=== PATIENT | male | born 1975 | race Caucasian/White ===

== ENCOUNTER 2017-07-03 21:19 | Emergency (ER) | payer BC, OTHER ==
[2017-07-03] MEDS ORDERED: Sodium Chloride 0.9% 10 ML Syringe FLUSH PRN (21:44)
[2017-07-03] MEDS ORDERED: Sodium Chloride 0.9% 1,000 ML IV ONE (21:44)
--- NOTE | 2017-07-03 21:45 | EDM.PDOC ---
ED HPI GENERAL MEDICAL PROBLEM - General Chief Complaint: Flank Pain Stated Complaint: RIGHT SIDE FLANK PAIN Time Seen by Provider: 07/03/17 21:45 Source of Information: Reports: Patient History Limitations: Reports: No Limitations - History of Present Illness INITIAL COMMENTS - FREE TEXT/NARRATIVE: Patient is a 41-year-old male presents ED complaining of right-sided flank pain. States the pain is rated 8 out of 10 described as a dull achy sensation unable to get comfortable. It radiates into his right lower back consistent with previous previous passing a kidney stones. He's had 3 on the right that pass on their own accord. Last had a CT study of the abdomen and pelvis in 2016. Pain started approximately 2 weeks ago and has gradually progressed. It is quite severe today. Has been taking Tylenol and ibuprofen in alternating fashion for pain with minimal relief. He has been pushing the fluids. Denies any nausea/vomiting, fever/chills, dysuria, diarrhea, chest pain, shortness of breath, or any additional complaints. Right Flank Pain Score (Numeric/FACES): 9 - Related Data Allergies Allergy/AdvReac Type Severity Reaction Status Date / Time pineapple Allergy Vomiting Verified 07/03/17 21:32 tramadol Allergy Giddiness Verified 07/03/17 21:31 Past Medical History Genitourinary History: Reports: Renal Calculus - Infectious Disease History Infectious Disease History: Reports: Chicken Pox - Past Surgical History GI Surgical History: Reports: Hernia Repair/Other Other GI Surgeries/Procedures: umbilical hernia Social & Family History - Tobacco Use Smoking Status *Q: Current Every Day Smoker Years of Tobacco use: 20 Packs/Tins Daily: 1 - Caffeine Use Caffeine Use: Reports: None - Recreational Drug Use Recreational Drug Use: No ED ROS GENERAL - Review of Systems Review Of Systems: ROS reveals no pertinent complaints other than HPI. ED EXAM, RENAL/ - Physical Exam Exam: See Below Exam Limited By: No Limitations General Appearance: Alert, WD/WN, Mild Distress Ears: Hearing Grossly Normal Nose: Normal Inspection Throat/Mouth: Normal Inspection, Normal Oropharynx, Normal Voice, No Airway Compromise Neck: Normal Inspection, Supple Respiratory/Chest: No Respiratory Distress, Lungs Clear, Normal Breath Sounds, No Accessory Muscle Use Cardiovascular: Normal Peripheral Pulses, Regular Rate, Rhythm, No Murmur GI/Abdominal: Normal Bowel Sounds, Soft, Non-Tender, No Organomegaly, No Distention (Male) Exam: Deferred (No complaints) Back Exam: Normal Inspection, CVA Tenderness (R), Other (Right-sided flank tenderness). No: CVA Tenderness (L) Neurological: Alert, Oriented, CN II-XII Intact, Normal Cognition, No Motor/ Sensory Deficits Psychiatric: Normal Affect, Normal Mood Skin Exam: Warm, Dry, Intact, Normal Color, No Rash Course - Vital Signs Last Recorded V/S: Last Vital Signs Temp 97.9 F 07/03/17 21:26 Pulse 84 07/03/17 21:26 Resp 20 07/03/17 21:26 BP 148/94 H 07/03/17 21:26 Pulse Ox 99 07/03/17 21:26 - Orders/Labs/Meds Orders: Active Orders 24 hr Category Date Time Status Peripheral IV Care [RC] . DIRECTED Care 07/03/17 21:44 Active Abdomen Pelvis wo Cont [CT] Stat Exams 07/03/17 22:22 Taken DME for Discharge [COMM] Stat Oth 07/03/17 23:41 Ordered Peripheral IV Insertion Adult [OM.PC] Stat Oth 07/03/17 21:44 Ordered Labs: Laboratory Tests 07/03/17 07/03/17 07/03/17 Range/Units 22:00 22:00 22:15 WBC 6.80 (4.23-9.07) K/mm3 RBC 4.50 L (4.63-6.08) M/mm3 Hgb 14.9 (13.7-17.5) gm/L Hct 43.3 (40.1-51.0) % MCV 96.2 H (79.0-92.2) fl MCH 33.1 H (25.7-32.2) pg MCHC 34.4 (32.2-35.5) g/dl RDW Std Deviation 40.3 (35.1-43.9) fL Plt Count 178 (163-337) K/mm3 MPV 10.1 (9.4-12.3) fl Neut % (Auto) 42.7 (34.0-67.9) % Lymph % (Auto) 37.2 (21.8-53.1) % [place] % (Auto) 14.3 H (5.3-12.2) % Eos % (Auto) 4.7 (0.8-7.0) Baso % (Auto) 1.0 (0.1-1.2) % Neut # (Auto) 2.90 (1.78-5.38) K/mm3 Lymph # (Auto) 2.53 (1.32-3.57) K/mm3 [place] # (Auto) 0.97 H (0.30-0.82) K/mm3 Eos # (Auto) 0.32 (0.04-0.54) K/mm3 Baso # (Auto) 0.07 (0.01-0.08) K/mm3 Sodium 142 (136-145) mEq/L Potassium 4.0 (3.5-5.1) mEq/L Chloride 108 H (98-107) mEq/L Carbon Dioxide 24 (21-32) mEq/L Anion Gap 14.0 (5-15) BUN 13 (7-18) mg/dL Creatinine 1.1 (0.7-1.3) mg/dL Est Cr Clr Drug Dosing TNP Estimated GFR (MDRD) > 60 (>60) mL/min BUN/Creatinine Ratio 11.8 L (14-18) Glucose 111 H (74-106) mg/dL Calcium 8.3 L (8.5-10.1) mg/dL Total Bilirubin 0.4 (0.2-1.0) mg/dL AST 19 (15-37) U/L ALT 43 (16-63) U/L Alkaline Phosphatase 66 (46-116) U/L C-Reactive Protein < 0.2 (<1.0) mg/dL Total Protein 6.9 (6.4-8.2) g/dl Albumin 3.5 (3.4-5.0) g/dl Globulin 3.4 gm/dL Albumin/Globulin Ratio 1.0 (1-2) Urine Color (Yellow) Urine Appearance (Clear) Urine pH (5.0-8.0) Ur Specific [place] (1.005-1.030) Urine Protein (Negative) Urine Glucose (UA) (Negative) Urine Ketones (Negative) Urine Occult Blood (Negative) Urine Nitrite (Negative) Urine Bilirubin (Negative) Urine Urobilinogen (0.2-1.0) Ur Leukocyte Esterase (Negative) Urine RBC (0-5) /hpf Urine WBC (0-5) /hpf Ur Epithelial Cells (0-5) /hpf Urine Bacteria (FEW) /hpf Urine Mucus (FEW) /hpf Urine Opiates Screen Negative (NEGATIVE) Ur Buprenorphine Scrn Negative (NEGATIVE) Ur Oxycodone Screen Negative (NEGATIVE) Urine Methadone Screen Negative (NEGATIVE) Ur Propoxyphene Screen Negative (NEGATIVE) Ur Barbiturates Screen Negative (NEGATIVE) Ur Tricyclics Screen Negative (NEGATIVE) Ur Phencyclidine Scrn Negative (NEGATIVE) Ur Amphetamine Screen Negative (NEGATIVE) U Methamphetamines Scrn Negative (NEGATIVE) U Benzodiazepines Scrn Negative (NEGATIVE) U Cocaine Metab Screen Negative (NEGATIVE) U Marijuana (THC) Screen Presumptive positive H (NEGATIVE) 07/03/17 Range/Units 22:15 WBC (4.23-9.07) K/mm3 RBC (4.63-6.08) M/mm3 Hgb (13.7-17.5) gm/L Hct (40.1-51.0) % MCV (79.0-92.2) fl MCH (25.7-32.2) pg MCHC (32.2-35.5) g/dl RDW Std Deviation (35.1-43.9) fL Plt Count (163-337) K/mm3 MPV (9.4-12.3) fl Neut % (Auto) (34.0-67.9) % Lymph % (Auto) (21.8-53.1) % [place] % (Auto) (5.3-12.2) % Eos % (Auto) (0.8-7.0) Baso % (Auto) (0.1-1.2) % Neut # (Auto) (1.78-5.38) K/mm3 Lymph # (Auto) (1.32-3.57) K/mm3 [place] # (Auto) (0.30-0.82) K/mm3 Eos # (Auto) (0.04-0.54) K/mm3 Baso # (Auto) (0.01-0.08) K/mm3 Sodium (136-145) mEq/L Potassium (3.5-5.1) mEq/L Chloride (98-107) mEq/L Carbon Dioxide (21-32) mEq/L Anion Gap (5-15) BUN (7-18) mg/dL Creatinine (0.7-1.3) mg/dL Est Cr Clr Drug Dosing Estimated GFR (MDRD) (>60) mL/min BUN/Creatinine Ratio (14-18) Glucose (74-106) mg/dL Calcium (8.5-10.1) mg/dL Total Bilirubin (0.2-1.0) mg/dL AST (15-37) U/L ALT (16-63) U/L Alkaline Phosphatase (46-116) U/L C-Reactive Protein (<1.0) mg/dL Total Protein (6.4-8.2) g/dl Albumin (3.4-5.0) g/dl Globulin gm/dL Albumin/Globulin Ratio (1-2) Urine Color Yellow (Yellow) Urine Appearance Clear (Clear) Urine pH 6.5 (5.0-8.0) Ur Specific [place] 1.020 (1.005-1.030) Urine Protein Negative (Negative) Urine Glucose (UA) Negative (Negative) Urine Ketones Negative (Negative) Urine Occult Blood Negative (Negative) Urine Nitrite Negative (Negative) Urine Bilirubin Negative (Negative) Urine Urobilinogen 1.0 (0.2-1.0) Ur Leukocyte Esterase Negative (Negative) Urine RBC Not seen (0-5) /hpf Urine WBC 0-5 (0-5) /hpf Ur Epithelial Cells Not seen (0-5) /hpf Urine Bacteria Not seen (FEW) /hpf Urine Mucus Few (FEW) /hpf Urine Opiates Screen (NEGATIVE) Ur Buprenorphine Scrn (NEGATIVE) Ur Oxycodone Screen (NEGATIVE) Urine Methadone Screen (NEGATIVE) Ur Propoxyphene Screen (NEGATIVE) Ur Barbiturates Screen (NEGATIVE) Ur Tricyclics Screen (NEGATIVE) Ur Phencyclidine Scrn (NEGATIVE) Ur Amphetamine Screen (NEGATIVE) U Methamphetamines Scrn (NEGATIVE) U Benzodiazepines Scrn (NEGATIVE) U Cocaine Metab Screen (NEGATIVE) U Marijuana (THC) Screen (NEGATIVE) Meds: Medications Discontinued Medications Generic Name Dose Route Start Last Admin Trade Name Freq PRN Reason Stop Dose Admin Hydromorphone HCl 0.5 mg 07/03/17 22:22 07/03/17 22:32 Dilaudid IVPUSH 07/03/17 22:23 0.5 mg ONETIME ONE Administration Sodium Chloride 1,000 mls @ 999 mls/hr 07/03/17 21:44 07/03/17 22:14 Normal Saline IV 07/03/17 22:44 999 mls/hr ONETIME ONE Administration Ketorolac Tromethamine 30 mg 07/03/17 22:22 07/03/17 22:33 Toradol IVPUSH 07/03/17 22:23 30 mg ONETIME ONE Administration Sodium Chloride 10 ml 07/03/17 21:44 07/03/17 22:15 Saline Flush FLUSH 10 ml ASDIRECTED PRN Administration Keep Vein Open Tamsulosin HCl 0.4 mg 07/03/17 23:40 07/04/17 00:03 Flomax PO 07/03/17 23:41 0.4 mg ONETIME ONE Administration - Re-Assessments/Exams Free Text/Narrative Re-Assessment/Exam: Labs reviewed: CBC 6.80, hemoglobin 14.9, platelet count 178, condition panel essentially normal, CRP less than 0.2. UA completely normal. Urine drug tox positive for marijuana. Small kidney stone within the right distal ureter with minimal hydronephrosis present. Few kidney stones within the right kidney. Reassessment, shared results of labs and CT study with patient. Pain is controlled. Ordered flomax 0.4mg PO. We will discharge patient home with instructions as documented. Departure - Departure Time of Disposition: 23:50 Disposition: Home, Self-Care 01 Condition: Good Clinical Impression: Kidney stone on right side - Discharge Information Instructions: Kidney Stones, [id number], Pain Medicine Instructions, Easy-to- Read Referrals: PCP,None [Primary Care Provider] - Forms: ED Department Discharge, ED Return to Work/School Form Additional Instructions: As discussed you have a small kidney stone within the right ureter that should pass on its own accord over the next few hours. Treatment at this point will be Tylenol and ibuprofen in alternating fashion for pain. Flomax 1 tab every day for the next 7 days. Push the fluids. Strain all urine voids. For severe pain take [place] one tab every 6 hours as needed. Do not take [place] and Tylenol together. Follow-up with urologist if stone does not pass within the next week or 2 for reevaluation. No driving while taking the [place]. No driving this evening since receiving a sedative medication while in the ED. Return to the ED if you develop any new or worsening symptoms. - My Orders Last 24 Hours: My Active Orders 07/03/17 21:44 Peripheral IV Care [RC] . DIRECTED Peripheral IV Insertion Adult [OM.PC] Stat 07/03/17 22:22 Abdomen Pelvis wo Cont [CT] Stat 07/03/17 23:41 DME for Discharge [COMM] Stat - Assessment/Plan Last 24 Hours: My Active Orders 07/03/17 21:44 Peripheral IV Care [RC] . DIRECTED Peripheral IV Insertion Adult [OM.PC] Stat 07/03/17 22:22 Abdomen Pelvis wo Cont [CT] Stat 07/03/17 23:41 DME for Discharge [COMM] Stat
[2017-07-03] MEDS ORDERED: Ketorolac 30 MG/ML SDV IVPUSH ONE (22:22)
[2017-07-03] MEDS ORDERED: HYDROmorphone 0.5 MG/0.5 ML Syringe IVPUSH ONE (22:22)
[2017-07-03] MEDS ORDERED: Tamsulosin 0.4 MG Cap.ER PO ONE (23:40)
--- NOTE | 2017-07-04 10:54 | CT ---
CT abdomen and pelvis Technique: Multiple axial sections were obtained from above the dome of the diaphragm inferiorly through the pubic symphysis. Intravenous and oral contrast not utilized. Comparison: Previous noncontrast CT exam of 01/11/09. Findings: Visualized lung bases are clear. Diffuse fatty infiltration is seen within the liver. Spleen appears within normal limits. Adrenal glands show no nodule. Pancreas appears within normal limits. Minimal increased density within the gallbladder suspicious for small gallstones. Nonobstructing calculi are seen within the right kidney. Left kidney shows no abnormal calcifications. Ureters show no dilatation. No abnormal calcifications are seen along the course of the ureters. Aorta shows no aneurysmal dilatation. No retroperitoneal adenopathy or mesenteric abnormalities are seen. Appendix is seen which is normal. No pelvic mass or adenopathy is seen. Small fat containing left inguinal hernia is noted. No free fluid or inflammatory change is seen. Bone window settings were reviewed which appear within normal limits for the patient's age. Impression: 1. Diffuse fatty infiltration within the liver which is a stable finding from prior CT exam. 2. Possible small gallstones within the gallbladder. 3. Nonobstructing calculi within the right kidney. No ureteral dilatation or ureteral stone is seen. 4. Other incidental findings. Diagnostic code #3 I agree with preliminary report issued by [facility] ([facility] report finalized on 07/04/17, 12:02 AM Central Time)
== END 2017-07-04 00:22 | disposition home or self-care (01) ==
LOC: JD.ED 21:19
DX: N13.2 Hydronephrosis with renal and ureteral calculous obstruction (principal); F17.210 Nicotine dependence, cigarettes, uncomplicated; Z88.5 Allergy status to narcotic agent; Z91.018 Allergy to other foods
CPT/HCPCS: 36415; 74176; 80053; 80306; 81001; 85025; 86140; 96361; 96374; 96375; 99284; A9270; J1170; J1885; J7040; J7050

== ENCOUNTER 2017-07-24 21:30 | Emergency (ER) | payer SELFPAY ==
--- NOTE | 2017-07-24 23:00 | EDM.PDOC ---
ED HPI GENERAL MEDICAL PROBLEM - General Chief Complaint: Flank Pain Stated Complaint: RIGHT FLANK PAIN Time Seen by Provider: 07/24/17 22:05 Source of Information: Reports: Patient, Old Records History Limitations: Reports: No Limitations - History of Present Illness INITIAL COMMENTS - FREE TEXT/NARRATIVE: The patient states that he developed a stabbing pain just superior to his right buttock yesterday, 07/23/2017. The pain comes and goes, typically lasting about 1 minute, recurring about every 10-15 minutes. He feels better if he is sitting upright or walking around, worse if he is supine, and he has also noticed that he has increasing frequency of pain if he is supine. The patient reports that he had some burning urination with his last urination. No recent fever, nausea, vomiting, constipation, or diarrhea. The patient states that he has had similar symptoms 5 or 6 times in the past, and diagnosed with kidney stones. He has never followed up with a Urologist. Review of our medical records indicates that the patient was seen in this ED on 07/03/2017 with a similar complaint of right flank pain. Workup at that time included a CBC, CMP, CRP, urinalysis, urine drug screen, and a CT scan of the abdomen and pelvis without contrast. His workup was unremarkable. He did not have an elevated WBC count, and his urinalysis was negative for both occult blood and RBCs. His urine drug screen was positive for marijuana (that the patient acknowledges). The preliminary CT scan was read by [facility], who reported no hydronephrosis, but multiple bilateral small nonobstructive calcifications of the renal sinuses. There was no bladder calculus, and [facility]'s impression was that the source of the patient's pain was not elucidated. Subsequent formal read of the CT scan by Dr. Mishra concluded the same. For reasons unclear, however, the provider documented "Small kidney stone within the right distal ureter with minimal hydronephrosis present. Few kidney stones within the right kidney." The discharge instructions indicated "As discussed in you have a small kidney stone within the right ureter that you should pass on its own accord over the next few hours." The patient was discharged home with prescriptions for [place] and Flomax. Left Flank Pain Score (Numeric/FACES): 8 - Related Data Allergies Allergy/AdvReac Type Severity Reaction Status Date / Time pineapple Allergy Vomiting Verified 07/03/17 21:32 tramadol Allergy Giddiness Verified 07/03/17 21:31 Home Meds: Home Meds Orphenadrine [Norflex] 1 tab PO Q12H PRN #20 tab.er 07/24/17 [Rx] Past Medical History Genitourinary History: Reports: Renal Calculus Endocrine/Metabolic History: Reports: Obesity/BMI 30+ - Infectious Disease History Infectious Disease History: Reports: Chicken Pox - Past Surgical History GI Surgical History: Reports: Hernia, Abdominal (umbilical) Social & Family History - Tobacco Use Smoking Status *Q: Current Every Day Smoker Years of Tobacco use: 25 Packs/Tins Daily: 1 Packs/Tins Daily Comment: Down from 2 ppd - Caffeine Use Caffeine Use: Reports: Soda - Alcohol Use Alcohol Use History: Yes Alcohol Use Frequency: Rarely - Recreational Drug Use Recreational Drug Use: Yes Drug Use in Last 12 Months: Yes Recreational Drug Type: Reports: Marijuana/Hashish (occasionally) - Living Situation & Occupation Living situation: Reports: Single, with Family (with common-law , 2 kids) Occupation: Employed ([employer]) ED ROS GENERAL - Review of Systems Review Of Systems: ROS reveals no pertinent complaints other than HPI. ED EXAM, GI/ABD - Physical Exam Exam: See Below Exam Limited By: No Limitations General Appearance: Alert, WD/WN, No Apparent Distress Eyes: Bilateral: Normal Appearance, EOMI Ears: Normal External Exam, Hearing Grossly Normal Nose: Normal Inspection, No Blood Throat/Mouth: Normal Inspection, Normal Lips, Normal Voice, No Airway Compromise Head: Atraumatic, Normocephalic Neck: Normal Inspection, Full Range of Motion Respiratory/Chest: No Respiratory Distress, Lungs Clear, Normal Breath Sounds, No Accessory Muscle Use Cardiovascular: Normal Peripheral Pulses, Regular Rate, Rhythm, No Gallop, No JVD, No Murmur, No Rub GI/Abdominal Exam: Normal Bowel Sounds, Soft, Non-Tender, No Organomegaly, No Distention, No Abnormal Bruit, No Mass, Other (Obese) (Male) Exam: Deferred Rectal (Males) Exam: Deferred Back Exam: Normal Inspection, Full Range of Motion. No: CVA Tenderness (L), CVA Tenderness (R), Muscle Spasm, Paraspinal Tenderness Extremities: Normal Inspection, Normal Range of Motion, No Pedal Edema, Normal Capillary Refill Neurological: Alert, Oriented, Normal Cognition, No Motor/Sensory Deficits Psychiatric: Normal Affect Skin Exam: Warm, Dry, Intact, Normal Color, No Rash Course - Vital Signs Last Recorded V/S: Last Vital Signs Temp 36.5 C 07/24/17 21:35 Pulse 84 07/24/17 21:35 Resp 18 07/24/17 21:35 BP 151/85 H 07/24/17 21:35 Pulse Ox 97 07/24/17 21:35 - Orders/Labs/Meds Orders: Active Orders 24 hr Category Date Time Status Orphenadrine [Norflex] Med 07/24/17 23:42 Stat 100 mg PO ONETIME STA Labs: Laboratory Tests 07/24/17 Range/Units 22:28 Urine Color Yellow (Yellow) Urine Appearance Clear (Clear) Urine pH 6.5 (5.0-8.0) Ur Specific [place] > or = 1.030 (1.005-1.030) Urine Protein Negative (Negative) Urine Glucose (UA) Negative (Negative) Urine Ketones Negative (Negative) Urine Occult Blood Trace-lysed H (Negative) Urine Nitrite Negative (Negative) Urine Bilirubin Negative (Negative) Urine Urobilinogen 0.2 (0.2-1.0) Ur Leukocyte Esterase Negative (Negative) Urine RBC 0-5 (0-5) /hpf Urine WBC 0-5 (0-5) /hpf Ur Epithelial Cells Not seen (0-5) /hpf Urine Bacteria Not seen (FEW) /hpf Urine Mucus Moderate H (FEW) /hpf - Re-Assessments/Exams Free Text/Narrative Re-Assessment/Exam: 07/24/17 23:42 Urinalysis results discussed with the patient. His urinalysis finds trace occult blood, but 0-5 RBCs. This is not consistent with a ureterolith, and I recommended that we not proceed with a CT scan, as I believe this would be unnecessary radiation with an extremely low likelihood of finding a stone. Because the patient's CT scan from 07/03/2017 was otherwise negative, I suspect that the patient's pain musculoskeletal in etiology. I'm therefore recommending that we treat him with Norflex, and if his pain does not improve over the next few days, that he then follow-up with Dr. Zafar for further evaluation. The patient is agreeable. Departure - Departure Time of Disposition: 23:42 Disposition: Home, Self-Care 01 Condition: Good Clinical Impression: Muscle spasm of back - Discharge Information Referrals: PCP,None [Primary Care Provider] - Alyssa Zafar [Physician] - Forms: ED Department Discharge Additional Instructions: You were seen in the emergency room for intermittent lower right flank pain. Workup in the ER included a urinalysis, which returned as normal. There was no blood in your urine. While it is theoretically possible to have a stone in your ureter with no blood in your urine, it is extremely uncommon. Additionally, while you had been told on 07/03/2017 that you had a stone in your ureter, in fact, no stone was found there. You had no blood in your urine on 07/03/2017, either. Based on your history and physical examination, your pain is MOST LIKELY due to a muscle spasm. You have been started on the muscle relaxant Norflex. A prescription for this has been sent to the [facility], [address] [place] [address]. Take one tablet of Norflex every 12 hours, as prescribed. Take [id number] ibuprofen, 2-3 tablets (400-600 mg) every 8 hours, with food, as needed for discomfort. If you continue to have lower right flank pain over the weekend, please follow- up with Dr. Zafar in the clinic early this coming week. If any other problems, please do not hesitate to return to the ER. - My Orders Last 24 Hours: My Active Orders 07/24/17 23:42 Orphenadrine [Norflex] 100 mg PO ONETIME STA - Assessment/Plan Last 24 Hours: My Active Orders 07/24/17 23:42 Orphenadrine [Norflex] 100 mg PO ONETIME STA
[2017-07-24] MEDS ORDERED: Orphenadrine 100 MG Tab.ER PO STA (23:42)
== END 2017-07-24 23:55 | disposition home or self-care (01) ==
LOC: JD.ED 21:30
DX: M62.830 Muscle spasm of back (principal); E66.9 Obesity, unspecified; F17.210 Nicotine dependence, cigarettes, uncomplicated; Z88.6 Allergy status to analgesic agent; Z91.018 Allergy to other foods
CPT/HCPCS: 81001; 99284; A9270; 99283

== ENCOUNTER 2017-09-20 10:10 | Emergency (ER) | payer SELFPAY ==
[2017-09-20] MEDS ORDERED: Ondansetron 4 MG/2 ML SDV IVPUSH ONE (10:54)
[2017-09-20] MEDS ORDERED: Sodium Chloride 0.9% 1,000 ML IV STA (10:54)
[2017-09-20] MEDS ORDERED: Sodium Chloride 0.9% 10 ML Syringe FLUSH PRN ×2 (10:54→11:24)
[2017-09-20] MEDS ORDERED: fentaNYL 100 MCG/2 ML SDV IVPUSH ONE ×2 (10:57→14:15)
--- NOTE | 2017-09-20 11:23 | EDM.PDOC ---
ED HPI GENERAL MEDICAL PROBLEM - General Chief Complaint: Abdominal Pain Stated Complaint: RT SIDE PAIN Time Seen by Provider: 09/20/17 10:49 Source of Information: Reports: Patient History Limitations: Reports: No Limitations - History of Present Illness INITIAL COMMENTS - FREE TEXT/NARRATIVE: The patient presents with RLQ abdominal pain. This started this morning at 7: 30am. He has no nausea or vomiting. He has no dysuria, hematuria or diarrhea. He does have a history of kidney stones but says this feels different. He still has his gallbladder and his appendix. He has no fever, chills, cough, congestion, chest pain or shortness of breath. Onset: Sudden Duration: Hour(s): (7:30am) Location: Reports: Abdomen Quality: Reports: Sharp Severity: Severe Improves with: Reports: None Worsens with: Reports: None Associated Symptoms: Denies: Chest Pain, Fever/Chills, Headaches, Nausea/ Vomiting, Shortness of Breath Right Abdomen Pain Score (Numeric/FACES): 9 - Related Data Allergies Allergy/AdvReac Type Severity Reaction Status Date / Time pineapple Allergy Vomiting Verified 07/25/17 00:22 tramadol Allergy Giddiness Verified 07/25/17 00:22 Home Meds: Home Meds Hydrocodone/Acetaminophen [Hydrocodon-Acetaminophen 5-325] 1 - 2 each PO Q6HR PRN #20 tablet 09/20/17 [Rx] Tamsulosin HCl [Flomax] 0.4 mg PO DAILY #7 cap.er.24h 09/20/17 [Rx] Past Medical History Genitourinary History: Reports: Renal Calculus Endocrine/Metabolic History: Reports: Obesity/BMI 30+ - Infectious Disease History Infectious Disease History: Reports: Chicken Pox - Past Surgical History GI Surgical History: Reports: Hernia, Abdominal Social & Family History - Family History Family Medical History: Noncontributory - Tobacco Use Smoking Status *Q: Current Every Day Smoker Years of Tobacco use: 20 Packs/Tins Daily: 1 Used Tobacco, but Quit: No Second Hand Smoke Exposure: No - Caffeine Use Caffeine Use: Reports: Tea - Recreational Drug Use Recreational Drug Use: Yes Drug Use in Last 12 Months: Yes Recreational Drug Type: Reports: Marijuana/Hashish - Living Situation & Occupation Living situation: Reports: Single, with Family (with common-law , 2 kids) Occupation: Employed ([employer]) ED ROS GENERAL - Review of Systems Review Of Systems: See Below Constitutional: Reports: No Symptoms HEENT: Reports: No Symptoms Respiratory: Reports: No Symptoms Cardiovascular: Reports: No Symptoms Endocrine: Reports: No Symptoms GI/Abdominal: Reports: Abdominal Pain. Denies: Diarrhea, Nausea, Vomiting : Reports: No Symptoms Musculoskeletal: Reports: No Symptoms Skin: Reports: No Symptoms ED EXAM, GI/ABD - Physical Exam Exam: See Below Exam Limited By: No Limitations General Appearance: Alert, No Apparent Distress Ears: Normal External Exam Nose: Normal Inspection Head: Atraumatic, Normocephalic Neck: Normal Inspection Respiratory/Chest: No Respiratory Distress, Lungs Clear, Normal Breath Sounds Cardiovascular: Regular Rate, Rhythm, No Edema, No Murmur GI/Abdominal Exam: Soft, No Organomegaly, No Mass, Tender (Mild to moderate) Back Exam: Normal Inspection Course - Vital Signs Last Recorded V/S: Last Vital Signs Temp 97.9 F 09/20/17 10:15 Pulse 83 09/20/17 10:15 Resp 18 09/20/17 10:15 BP 168/100 H 09/20/17 10:15 Pulse Ox 98 09/20/17 10:15 - Orders/Labs/Meds Orders: Active Orders 24 hr Category Date Time Status Peripheral IV Care [RC] . DIRECTED Care 09/20/17 10:54 Active Sodium Chloride 0.9% [Saline Flush] Med 09/20/17 10:54 Active 10 ml FLUSH ASDIRECTED PRN Sodium Chloride 0.9% [Saline Flush] Med 09/20/17 11:24 Active 10 ml FLUSH ONETIME PRN fentaNYL [Sublimaze] Med 09/20/17 14:15 Once 100 mcg IVPUSH ONETIME ONE ED Antiemetic Medication Reflex [OM.PC] Stat Oth 09/20/17 10:54 Ordered Peripheral IV Insertion Adult [OM.PC] Stat Oth 09/20/17 10:54 Ordered Medication Orders Sodium Chloride (Saline Flush) 10 ml FLUSH ASDIRECTED PRN PRN Reason: Keep Vein Open Last Admin: 09/20/17 11:07 Dose: 10 ml Sodium Chloride (Saline Flush) 10 ml FLUSH ONETIME PRN PRN Reason: IV FLUSH Last Admin: 09/20/17 12:42 Dose: 10 ml Labs: Laboratory Tests 09/20/17 09/20/17 09/20/17 Range/Units 10:20 10:20 11:23 WBC 6.28 (4.23-9.07) K/mm3 RBC 4.85 (4.63-6.08) M/mm3 Hgb 16.3 (13.7-17.5) gm/L Hct 46.3 (40.1-51.0) % MCV 95.5 H (79.0-92.2) fl MCH 33.6 H (25.7-32.2) pg MCHC 35.2 (32.2-35.5) g/dl RDW Std Deviation 41.0 (35.1-43.9) fL Plt Count 207 (163-337) K/mm3 MPV 10.6 (9.4-12.3) fl Neut % (Auto) 58.0 (34.0-67.9) % Lymph % (Auto) 26.6 (21.8-53.1) % [place]by % (Auto) 11.5 (5.3-12.2) % Eos % (Auto) 2.5 (0.8-7.0) Baso % (Auto) 1.1 (0.1-1.2) % Neut # (Auto) 3.64 (1.78-5.38) K/mm3 Lymph # (Auto) 1.67 (1.32-3.57) K/mm3 [place] # (Auto) 0.72 (0.30-0.82) K/mm3 Eos # (Auto) 0.16 (0.04-0.54) K/mm3 Baso # (Auto) 0.07 (0.01-0.08) K/mm3 Sodium 139 (136-145) mEq/L Potassium 3.9 (3.5-5.1) mEq/L Chloride 103 (98-107) mEq/L Carbon Dioxide 24 (21-32) mEq/L Anion Gap 15.9 H (5-15) BUN 15 (7-18) mg/dL Creatinine 1.0 (0.7-1.3) mg/dL Est Cr Clr Drug Dosing 106.70 mL/min Estimated GFR (MDRD) > 60 (>60) mL/min BUN/Creatinine Ratio 15.0 (14-18) Glucose 118 H (74-106) mg/dL Calcium 9.1 (8.5-10.1) mg/dL Total Bilirubin 0.8 (0.2-1.0) mg/dL AST 34 (15-37) U/L ALT 62 (16-63) U/L Alkaline Phosphatase 73 (46-116) U/L Total Protein 7.8 (6.4-8.2) g/dl Albumin 4.4 (3.4-5.0) g/dl Globulin 3.4 gm/dL Albumin/Globulin Ratio 1.3 (1-2) Lipase 220 (73-393) U/L Urine Color Yellow (Yellow) Urine Appearance Clear (Clear) Urine pH 6.5 (5.0-8.0) Ur Specific [place] 1.015 (1.005-1.030) Urine Protein Negative (Negative) Urine Glucose (UA) Negative (Negative) Urine Ketones Negative (Negative) Urine Occult Blood 2+ H (Negative) Urine Nitrite Negative (Negative) Urine Bilirubin Negative (Negative) Urine Urobilinogen 0.2 (0.2-1.0) Ur Leukocyte Esterase Negative (Negative) Urine RBC 5-10 H (0-5) /hpf Urine WBC 0-5 (0-5) /hpf Ur Epithelial Cells Not seen (0-5) /hpf Urine Bacteria Not seen (FEW) /hpf Urine Mucus Few (FEW) /hpf Meds: Medications Generic Name Dose Route Start Last Admin Trade Name Maribel PRN Reason Stop Dose Admin Sodium Chloride 10 ml 09/20/17 10:54 09/20/17 11:07 Saline Flush FLUSH 10 ml ASDIRECTED PRN Administration Keep Vein Open Sodium Chloride 10 ml 09/20/17 11:24 09/20/17 12:42 Saline Flush FLUSH 10 ml ONETIME PRN Administration IV FLUSH Discontinued Medications Generic Name Dose Route Start Last Admin Trade Name Fredeep PRN Reason Stop Dose Admin Diatrizoate Meglum/Diatrizoate Sod 90 ml 09/20/17 11:24 09/20/17 12:41 Gastrografin 37% PO 09/20/17 11:25 90 ml ONETIME ONE Administration Fentanyl 100 mcg 09/20/17 10:57 09/20/17 11:06 Sublimaze IVPUSH 09/20/17 10:58 100 mcg ONETIME ONE Administration Hydromorphone HCl 0.5 mg 09/20/17 12:15 09/20/17 12:28 Dilaudid IVPUSH 09/20/17 12:16 0.5 mg ONETIME ONE Administration Sodium Chloride 1,000 mls @ 1,000 mls/hr 09/20/17 10:54 09/20/17 11:04 Normal Saline IV 09/20/17 11:53 1,000 mls/hr .BOLUS STA Administration Iopamidol 125 ml 09/20/17 11:24 09/20/17 12:42 Isovue-300 (61%) IVPUSH 09/20/17 11:25 125 ml ONETIME ONE Administration Ondansetron HCl 4 mg 09/20/17 10:54 09/20/17 11:04 Zofran IVPUSH 09/20/17 10:55 4 mg ONETIME ONE Administration - Re-Assessments/Exams Free Text/Narrative Re-Assessment/Exam: 09/20/17 13:13 I ordered an IV NS 1L bolus, zofran 4mg IV, fentanyl 100mcg, labs, UA and a CT of his abdomen and pelvis. 09/20/17 14:15 His CBC and CMP look good. His UA shows blood in his urine. His CT does show a stone in the right ureter at the UVJ. I will give him some more fentanyl and discharge him home on some hydrocodone and flomax. Departure - Departure Time of Disposition: 14:20 Disposition: Home, Self-Care 01 Condition: Good Clinical Impression: Kidney stone on right side - Discharge Information Prescriptions: Hydrocodone/Acetaminophen [Hydrocodon-Acetaminophen 5-325] 1 - 2 each PO Q6HR PRN #20 tablet PRN Reason: Pain Tamsulosin HCl [Flomax] 0.4 mg PO DAILY #7 cap.er.24h Referrals: PCP,None [Primary Care Provider] - Casimiro Evans MD [Physician] - 1 Week Forms: ED Department Discharge Additional Instructions: Take an antiinflammatory such as motrin or aleve. You may also take the hydrocodone for pain. Drink plenty of fluids. Take flomax daily until you pass the stone. Follow up with Dr Evans. Please return if you are worse. - My Orders Last 24 Hours: My Active Orders 09/20/17 10:54 Peripheral IV Care [RC] . DIRECTED Sodium Chloride 0.9% [Saline Flush] 10 ml FLUSH ASDIRECTED PRN ED Antiemetic Medication Reflex [OM.PC] Stat Peripheral IV Insertion Adult [OM.PC] Stat 09/20/17 11:24 Sodium Chloride 0.9% [Saline Flush] 10 ml FLUSH ONETIME PRN 09/20/17 14:15 fentaNYL [Sublimaze] 100 mcg IVPUSH ONETIME ONE - Assessment/Plan Last 24 Hours: My Active Orders 09/20/17 10:54 Peripheral IV Care [RC] . DIRECTED Sodium Chloride 0.9% [Saline Flush] 10 ml FLUSH ASDIRECTED PRN ED Antiemetic Medication Reflex [OM.PC] Stat Peripheral IV Insertion Adult [OM.PC] Stat 09/20/17 11:24 Sodium Chloride 0.9% [Saline Flush] 10 ml FLUSH ONETIME PRN 09/20/17 14:15 fentaNYL [Sublimaze] 100 mcg IVPUSH ONETIME ONE
[2017-09-20] MEDS ORDERED: Diatrizoate Meglumine/Diatrizoate Sodium 37% 120 ML Bottle PO ONE (11:24)
[2017-09-20] MEDS ORDERED: Iopamidol 612 MG/ML 150 ML Bottle IVPUSH ONE (11:24)
[2017-09-20] MEDS ORDERED: HYDROmorphone 0.5 MG/0.5 ML SYRINGE IVPUSH ONE (12:15)
--- NOTE | 2017-09-20 13:27 | CT ---
Addendum: Additional delayed images through the pelvis were obtained. Contrast is noted the distal right ureter. Small calcification is seen in the area of the distal right ureter which is felt to be within the distal right ureter at the UVJ and slightly displaced medially due to mild edema within the distal right ureteral wall. Findings are felt compatible with a partially obstructing distal right ureteral stone. --- Addendum1 above dictated on [09/20/2017 13:53] by [Boby Mishra, Jeremiah Stephens] --- --- Addendum1 above signed on [09/20/2017 13:54] by [Boby Mishra Hilton J.] --- --- Original report below dictated on [09/20/2017 12:55] by [Boby Mishra, Jeremiah Stephens] --- --- Original report below signed on [09/20/2017 13:23] by [Boby Mishra Hilton J.] --- CT abdomen and pelvis Technique: Multiple axial sections were obtained from above the dome of the diaphragm inferiorly through the pubic symphysis. Intravenous and oral contrast was utilized. Delayed images were obtained to the bladder. Findings: Appendix is seen and is normal. Terminal ileum appears normal. Diverticuli are seen within the sigmoid colon with no inflammatory change seen to indicate diverticulitis. Visualized lung bases show nothing acute. Liver shows fatty infiltration without focal abnormality. Spleen appears within normal limits. Adrenal glands contain no nodules. Pancreas is within normal limits. Gallbladder contains no calcified gallstones. Kidneys show symmetric contrast enhancement. Small nonobstructing stone is noted within the mid to upper right kidney measuring 5 mm with second smaller calcification also seen within the right kidney. No abnormal calcifications are seen along the course of the ureters. Aorta shows no aneurysmal dilatation. No retroperitoneal adenopathy or mesenteric abnormalities are seen. No pelvic mass or adenopathy is seen. Delayed images show contrast within the distal ureters and within the bladder. Bone window settings were reviewed which appears within normal limits for the patient's age. Impression: 1. One and probably 2 small nonobstructing stones within the right kidney. 2. Diverticuli within the sigmoid colon without findings of diverticulitis. Fatty infiltration within the liver. 3. CT study of the abdomen and pelvis is otherwise unremarkable. No etiology identified for patient's right lower quadrant pain. Diagnostic code #3 --- Addendum1 signed ---
== END 2017-09-20 14:29 | disposition home or self-care (01) ==
LOC: JD.ED 10:10
DX: N20.2 Calculus of kidney with calculus of ureter (principal); E66.9 Obesity, unspecified; F17.210 Nicotine dependence, cigarettes, uncomplicated; Z91.018 Allergy to other foods; Z88.5 Allergy status to narcotic agent
CPT/HCPCS: 36415; 74177; 80053; 81001; 83690; 85025; 96361; 96374; 96375; 96376; 99284; J1170; J2405; J3010; J7040; J7050; Q9963; Q9967

== ENCOUNTER 2018-09-02 08:48 | Emergency (ER) | payer SELFPAY ==
[2018-09-02] MEDS ORDERED: Metoclopramide 10 MG/2 ML SDV IVPUSH ONE (09:56)
[2018-09-02] MEDS ORDERED: HYDROmorphone 1 MG/ML Syringe IVPUSH ONE (09:56)
[2018-09-02] MEDS ORDERED: Ketorolac 30 MG/ML SDV IVPUSH SCH (10:00)
[2018-09-02] MEDS ORDERED: Sodium Chloride 0.9% 1,000 ML IV SCH (10:00)
--- NOTE | 2018-09-02 10:01 | EDM.PDOC ---
ED HPI GENERAL MEDICAL PROBLEM - General Chief Complaint: Flank Pain Stated Complaint: FLANK PAIN Time Seen by Provider: 09/02/18 09:45 Source of Information: Reports: Patient History Limitations: Reports: No Limitations - History of Present Illness INITIAL COMMENTS - FREE TEXT/NARRATIVE: 43-year-old male presents to the ED with acute onset of left flank pain around 0600 hrs. this morning. Subsequently it has radiated around the left hemiabdomen is now radiating down towards the left groin. He denies any pain in the testicle or scrotum.. Patient has had 4 previous bouts with renal colic. Last time was in July 2017. He believes he's had 2 stones on each side in the past. Is always passed the stones on his own. No need for lithotripsy. No urinary tract infections. He has had no previous abdominal surgery. Associated nausea this morning without vomiting Does have a feeling of need to void. Current pain is constant with a colicky component Onset: Today Onset Date: 09/02/18 Onset Time: 06:00 Duration: Hour(s): Location: Reports: Abdomen (Left hemiabdomen), Back (Left flank pressure discomfort) Quality: Reports: Ache, Sharp, Stabbing, Other (Strong colicky component to the pain) Severity: Severe Improves with: Reports: None (8-9 out of 10) Worsens with: Reports: None Context: Reports: Other (Spontaneous occurrence it well he was getting ready for work this morning). Denies: Activity, Exercise, Lifting, Sick Contact, Trauma Associated Symptoms: Reports: Nausea/Vomiting, Other. Denies: Loss of Appetite , Malaise, Shortness of Breath (Nausea without vomiting), Syncope Treatments PROVIDER RELATIONS SPECIALIST: Reports: Other (see below) (None.) Left Flank Pain Score (Numeric/FACES): 9 - Related Data Allergies Allergy/AdvReac Type Severity Reaction Status Date / Time pineapple Allergy Vomiting Verified 09/02/18 09:37 tramadol Allergy Giddiness Verified 09/02/18 09:37 Home Meds: Home Meds Ciprofloxacin HCl [Cipro] 500 mg PO BID #16 tablet 09/02/18 [Rx] Past Medical History HEENT History: Reports: None Cardiovascular History: Reports: None Respiratory History: Reports: None Gastrointestinal History: Reports: None Genitourinary History: Reports: Renal Calculus Musculoskeletal History: Reports: None Neurological History: Reports: None Psychiatric History: Reports: ADHD Endocrine/Metabolic History: Reports: Obesity/BMI 30+ Hematologic History: Reports: None Immunologic History: Reports: None Oncologic (Cancer) History: Reports: None Dermatologic History: Reports: None - Infectious Disease History Infectious Disease History: Reports: Chicken Pox - Past Surgical History Head Surgeries/Procedures: Reports: None GI Surgical History: Reports: Hernia, Abdominal Social & Family History - Family History Family Medical History: Noncontributory HEENT: Reports: None Cardiac: Reports: CAD Respiratory: Reports: None GI: Reports: None : Reports: None OBGYN: Reports: None Musculoskeletal: Reports: None Neurological: Reports: None Psychiatric: Reports: None Endocrine/Metabolic: Reports: None Hematologic: Reports: None Immunologic: Reports: None Oncologic: Reports: None - Tobacco Use Smoking Status *Q: Current Every Day Smoker Years of Tobacco use: 20 Packs/Tins Daily: 1 - Caffeine Use Caffeine Use: Reports: Soda, Tea - Recreational Drug Use Recreational Drug Use: Yes Drug Use in Last 12 Months: Yes Recreational Drug Type: Reports: Marijuana/Hashish Recreational Drug Use Frequency: Daily - Living Situation & Occupation Living situation: Reports: Single, with Family (with common-law , 2 kids) Occupation: Employed ([employer]) ED ROS GENERAL - Review of Systems Review Of Systems: See Below Constitutional: Reports: Decreased Appetite. Denies: Fever, Chills, Malaise, Weakness, Fatigue, Weight Loss HEENT: Reports: No Symptoms Respiratory: Reports: No Symptoms Cardiovascular: Reports: No Symptoms Endocrine: Reports: No Symptoms GI/Abdominal: Reports: Abdominal Pain (Left augusto-abdominal pain starting in the left flank rating down towards the left groin.), Decreased Appetite, Nausea. Denies: Vomiting : Reports: Urgency (A feeling of need to void or sense of urgency.), Other ( No obvious hematuria.) Musculoskeletal: Reports: Back Pain (Left flank pain) Skin: Reports: No Symptoms Neurological: Reports: No Symptoms Psychiatric: Reports: No Symptoms ED EXAM, RENAL/ - Physical Exam Exam: See Below Exam Limited By: No Limitations General Appearance: Alert, WD/WN, Mild Distress (Mild distress.) Eye Exam: Bilateral Eye: Normal Inspection Respiratory/Chest: No Respiratory Distress, Lungs Clear, Normal Breath Sounds, No Accessory Muscle Use Cardiovascular: Normal Peripheral Pulses, Regular Rate, Rhythm, No Edema, No Gallop, No Murmur, No Rub GI/Abdominal: Soft, Non-Tender, No Organomegaly, No Abnormal Bruit, No Mass, Pelvis Stable, Abnormal Bowel Sounds. No: Guarding, Rigid, Rebound, Tender (Male) Exam: No Hernia Back Exam: Normal Inspection, CVA Tenderness (L). No: CVA Tenderness (R) (Mild) Extremities: Normal Inspection, Normal Range of Motion, Non-Tender, Normal Capillary Refill Neurological: Alert, Oriented, CN II-XII Intact, Normal Cognition Psychiatric: Other Skin Exam: Warm (In mild to moderate pain), Dry, Intact, Normal Color, No Rash Course - Vital Signs Last Recorded V/S: Last Vital Signs Temp 36.6 C 09/02/18 09:40 Pulse 74 09/02/18 09:40 Resp 16 09/02/18 09:40 BP 155/95 H 09/02/18 09:40 Pulse Ox 99 09/02/18 09:40 - Orders/Labs/Meds Orders: Active Orders 24 hr Category Date Time Status Ketorolac [Toradol] Med 09/02/18 10:00 Active 30 mg IVPUSH ONETIME Sodium Chloride 0.9% [Normal Saline] 1,000 ml Med 09/02/18 10:00 Active IV ASDIRECTED Medication Orders Sodium Chloride (Normal Saline) 1,000 mls @ 150 mls/hr IV ASDIRECTED MARCY Last Admin: 09/02/18 10:09 Dose: 150 mls/hr Ketorolac Tromethamine (Toradol) 30 mg IVPUSH ONETIME [facility] Last Admin: 09/02/18 11:01 Dose: 30 mg Labs: Laboratory Tests 09/02/18 Range/Units 09:40 Urine Color Yellow (Yellow) Urine Appearance Clear (Clear) Urine pH 6.0 (5.0-8.0) Ur Specific [place] 1.025 (1.005-1.030) Urine Protein Negative (Negative) Urine Glucose (UA) Negative (Negative) Urine Ketones Negative (Negative) Urine Occult Blood Negative (Negative) Urine Nitrite Negative (Negative) Urine Bilirubin Negative (Negative) Urine Urobilinogen 0.2 (0.2-1.0) Ur Leukocyte Esterase Negative (Negative) Urine RBC Not seen (0-5) /hpf Urine WBC 0-5 (0-5) /hpf Ur Epithelial Cells 0-5 (0-5) /hpf Urine Bacteria Rare (FEW) /hpf Urine Mucus Moderate H (FEW) /hpf Meds: Medications Generic Name Dose Route Start Last Admin Trade Name Maribel PRN Reason Stop Dose Admin Sodium Chloride 1,000 mls @ 150 mls/hr 09/02/18 10:00 09/02/18 10:09 Normal Saline IV 150 mls/hr ASDIRECTED MARCY Administration Ketorolac Tromethamine 30 mg 09/02/18 10:00 09/02/18 11:01 Toradol IVPUSH 30 mg ONETIME MARCY Administration Discontinued Medications Generic Name Dose Route Start Last Admin Trade Name Freq PRN Reason Stop Dose Admin Hydromorphone HCl 1 mg 09/02/18 09:56 09/02/18 10:11 Dilaudid IVPUSH 09/02/18 09:57 1 mg ONETIME ONE Administration Metoclopramide HCl 10 mg 09/02/18 09:56 09/02/18 10:09 Reglan IVPUSH 09/02/18 09:57 10 mg ONETIME ONE Administration - Radiology Interpretation Free Text/Narrative:: 43-year-old male presents to the ED with acute onset of left flank pain starting about 0600 hrs. this morning. Pain is now rating down the left hemiabdomen towards the left groin. He has not noticed any blood in his urine. He has a history of stone passage or bouts of renal colic 4 in the past. He is always passed the stones on his own. He has a feeling of need to void frequently. No blood noted in the urine. Current pain listed as 8 or 9 out of 10. Plan normal saline at 150 mils per hour. Given Dilaudid 1 mg IV, with Reglan 10 mg IV, Toradol 30 mg IV for acute pain relief. Plan urinalysis and CT of the abdomen per renal protocol - Re-Assessments/Exams Free Text/Narrative Re-Assessment/Exam: 09/02/18 11:42 urinalysis came back completely normal. CT of the abdomen and pelvis has been performed with renal protocol. There is a nonobstructing stone noted within the upper right kidney measuring approximate 5.7 mm. Second smaller nonobstructing stone is slightly more inferior within the mid right kidney measuring about 2.2 mm. No other abnormal calcifications are seen within the kidneys. Ureters show no evidence of dilatation and no abnormal calcifications are seen along the course of the ureters. Liver shows mild diffuse fatty infiltration spleen appears within normal limits adrenal gland show no nodules pancreas is normal. Small partially calcified gallstone is seen within the gallbladder. No retroperitoneal adenopathy or mesenteric abnormalities are identified appendix is seen which is normal in size diverticuli are seen within the sigmoid and descending colon without inflammatory change to suggest diverticulitis no free fluid is seen small fat- containing left inguinal hernia noted. I discussed the findings with the patient and he is tender enough throughout the distribution of the colon to suggest early diverticulitis. I'm going to therefore place him on Cipro 500 mg twice a day for the next 8 days. Departure - Departure Time of Disposition: 11:54 Disposition: Home, Self-Care 01 Condition: Fair Clinical Impression: Abdominal pain Qualifiers: Abdominal location: left lower quadrant Qualified Code(s): R10.32 - Left lower quadrant pain - Discharge Information *PRESCRIPTION DRUG MONITORING PROGRAM REVIEWED*: Not Applicable *COPY OF PRESCRIPTION DRUG MONITORING REPORT IN PATIENT VASYL: Not Applicable Prescriptions: Ciprofloxacin HCl [Cipro] 500 mg PO BID #16 tablet Referrals: PCP,None [Primary Care Provider] - Forms: ED Department Discharge, ED Return to Work/School Form Additional Instructions: Evaluation the emergent today in regards to acute onset of left flank pain shortly after getting to work this morning and then pain throughout the left hemiabdomen radiating down to the groin. This history was suggestive of kidney stones of which you've had several bouts of in the past. The urinalysis turned out to be completely normal without any red blood cells which is almost always present with a stone. CT of the head was performed per renal protocol and reveals no stones in the ureters at this time. There are 2 stones embedded within the tissue of the right kidney one is 5.5 mm and one is 2.2 mm in size. These may or may nap not become a problem in the future. Of note there is one small calcified gallstone in the gallbladder as well. He does reveal several diverticula of the your sigmoid colon. The history is suggestive of very early mild diverticulitis developing. Therefore you are to be treated with metabolic Cipro 500 mg twice daily for the next 8 days to clear up any infection. Continue Motrin 600 mg every 6 hours as needed for relief of pain and inflammation. Off work today but you may return to work tomorrow without any restrictions. Return to hospital via develop any fever or severe chills. - My Orders Last 24 Hours: My Active Orders 09/02/18 10:00 Ketorolac [Toradol] 30 mg IVPUSH ONETIME Sodium Chloride 0.9% [Normal Saline] 1,000 ml IV ASDIRECTED - Assessment/Plan Last 24 Hours: My Active Orders 09/02/18 10:00 Ketorolac [Toradol] 30 mg IVPUSH ONETIME Sodium Chloride 0.9% [Normal Saline] 1,000 ml IV ASDIRECTED
--- NOTE | 2018-09-02 11:04 | CT ---
CT abdomen and pelvis Technique: Multiple axial sections were obtained from above the dome of the diaphragm inferiorly through the pubic symphysis. Intravenous and oral contrast was not utilized. Study has been performed as a ureteral stone protocol. Comparison: Prior CT abdomen and pelvis exam of 09/20/17. Findings: Nonobstructing stone is noted within the upper right kidney measuring approximately 5.7 mm. Second smaller nonobstructing stone is seen slightly more inferior within the mid right kidney measuring about 2.2 mm. No other abnormal calcifications are seen within the kidneys. Ureters show no dilatation. No abnormal calcifications are seen along the course of the ureters. Visualized lung bases show nothing acute. Liver shows diffuse fatty infiltration. Spleen appears within normal limits. Adrenal glands show no nodule. Pancreas is within normal limits. Small partially calcified gallstone is seen within the gallbladder. Aorta shows no aneurysm. No retroperitoneal adenopathy or mesenteric abnormalities are seen. Appendix is seen which is normal in size. Diverticuli are seen within the sigmoid and descending colon without inflammatory change of diverticulitis being seen. No free fluid is seen. Small fat-containing left inguinal hernia is noted. Bone window settings were reviewed which appear within normal limits for the patient's age. Impression: 1. Two nonobstructing calculi within the right kidney. No ureteral dilatation or ureteral stone is seen. 2. Fatty infiltration within the liver. 3. Diverticuli within the colon without diverticulitis. 4. Other incidental findings. Diagnostic code #3
== END 2018-09-02 12:12 | disposition home or self-care (01) ==
LOC: JD.ED 08:48
DX: R10.32 Left lower quadrant pain (principal); E66.9 Obesity, unspecified; F17.210 Nicotine dependence, cigarettes, uncomplicated; Z88.5 Allergy status to narcotic agent; Z91.018 Allergy to other foods
CPT/HCPCS: 74176; 81001; 96361; 96374; 96375; 99284; J1170; J1885; J2765; J7040

== ENCOUNTER 2018-11-07 03:47 | Emergency (ER) | payer OTHER ==
--- NOTE | 2018-11-07 04:19 | EDM.PDOC ---
ED HPI GENERAL MEDICAL PROBLEM - General Chief Complaint: Flank Pain Stated Complaint: SIDE PAIN Time Seen by Provider: 11/07/18 04:11 - History of Present Illness INITIAL COMMENTS - FREE TEXT/NARRATIVE: 43-year-old male presents emergency room with right flank pain started about 2: 00 this morning. Patient has had problems multiple kidney stones in the past because of financial reasons has not been able to get in to see a urologist in the recent past. He has had a couple kidney stones ready this year multiple once last year. Patient denies any burning or frequency with urination no fevers or chills. Patient has not had any other sign suggestive of illness. Right Abdomen Pain Score (Numeric/FACES): 8 - Related Data Allergies Allergy/AdvReac Type Severity Reaction Status Date / Time pineapple Allergy Vomiting Verified 11/07/18 03:53 tramadol Allergy Giddiness Verified 11/07/18 03:53 Home Meds: Home Meds Acetaminophen/HYDROcodone [Braselton 325-7.5 MG] 1 - 2 tab PO Q6H PRN #30 tab [Rx] Ondansetron [Zofran ODT] 4 mg PO Q4H PRN #12 tab.dis 11/07/18 [Rx] Tamsulosin HCl [Flomax] 0.4 mg PO Q24H #7 capsule 11/07/18 [Rx] Past Medical History - Past Health History Medical/Surgical History: Denies Medical/Surgical History HEENT History: Reports: None Cardiovascular History: Reports: None Respiratory History: Reports: None Gastrointestinal History: Reports: None Genitourinary History: Reports: Renal Calculus Musculoskeletal History: Reports: None Neurological History: Reports: None Psychiatric History: Reports: ADHD Endocrine/Metabolic History: Reports: Obesity/BMI 30+ Hematologic History: Reports: None Immunologic History: Reports: None Oncologic (Cancer) History: Reports: None Dermatologic History: Reports: None - Infectious Disease History Infectious Disease History: Reports: Chicken Pox - Past Surgical History Head Surgeries/Procedures: Reports: None GI Surgical History: Reports: Hernia, Abdominal Social & Family History - Family History Family Medical History: Noncontributory HEENT: Reports: None Cardiac: Reports: CAD Respiratory: Reports: None GI: Reports: None : Reports: None OBGYN: Reports: None Musculoskeletal: Reports: None Neurological: Reports: None Psychiatric: Reports: None Endocrine/Metabolic: Reports: None Hematologic: Reports: None Immunologic: Reports: None Oncologic: Reports: None - Tobacco Use Smoking Status *Q: Current Every Day Smoker Years of Tobacco use: 25 Packs/Tins Daily: 1 - Caffeine Use Caffeine Use: Reports: Soda, Tea - Recreational Drug Use Recreational Drug Use: Yes Drug Use in Last 12 Months: Yes Recreational Drug Type: Reports: Marijuana/Hashish Recreational Drug Use Frequency: Weekly - Living Situation & Occupation Living situation: Reports: Single, with Family (with common-law , 2 kids) Occupation: Employed ([employer]) ED ROS GENERAL - Review of Systems Review Of Systems: See Below Constitutional: Reports: No Symptoms HEENT: Reports: No Symptoms Respiratory: Reports: No Symptoms Cardiovascular: Reports: No Symptoms Endocrine: Reports: No Symptoms GI/Abdominal: Reports: Abdominal Pain, Nausea. Denies: Vomiting : Reports: Flank Pain. Denies: Discharge, Dysuria, Frequency, Irregular Menses, Pain, Urgency Musculoskeletal: Reports: No Symptoms Skin: Reports: No Symptoms, Other Psychiatric: Reports: No Symptoms ED EXAM, RENAL/ - Physical Exam Exam: See Below Exam Limited By: No Limitations General Appearance: Alert, No Apparent Distress Head: Atraumatic, Normocephalic Neck: Normal Inspection, Supple, Non-Tender, Full Range of Motion Respiratory/Chest: No Respiratory Distress, Lungs Clear, Normal Breath Sounds Cardiovascular: Regular Rate, Rhythm, No Edema, No Murmur GI/Abdominal: Normal Bowel Sounds, Soft, Non-Tender Back Exam: Normal Inspection. No: CVA Tenderness (L), CVA Tenderness (R) Extremities: Normal Inspection, Non-Tender Neurological: Alert, Oriented, Normal Cognition Course - Vital Signs Last Recorded V/S: Last Vital Signs Temp 36.6 C 11/07/18 03:53 Pulse 73 11/07/18 03:53 Resp 18 11/07/18 03:53 BP 181/108 H 11/07/18 03:53 Pulse Ox 97 11/07/18 03:53 - Orders/Labs/Meds Orders: Active Orders 24 hr Category Date Time Status Abdomen Pelvis wo Cont [CT] Stat Exams 11/07/18 04:19 Taken Labs: Laboratory Tests 11/07/18 11/07/18 11/07/18 Range/Units 04:04 04:04 05:31 WBC 7.36 (4.23-9.07) K/mm3 RBC 4.73 (4.63-6.08) M/mm3 Hgb 15.7 (13.7-17.5) gm/L Hct 46.0 (40.1-51.0) % MCV 97.3 H (79.0-92.2) fl MCH 33.2 H (25.7-32.2) pg MCHC 34.1 (32.2-35.5) g/dl RDW Std Deviation 42.3 (35.1-43.9) fL Plt Count 197 (163-337) K/mm3 MPV 10.3 (9.4-12.3) fl Neutrophils % (Manual) 52 (40-60) % Band Neutrophils % 1 (0-10) % Lymphocytes % (Manual) 33 (20-40) % Atypical Lymphs % 0 % Monocytes % (Manual) 10 (2-10) % Eosinophils % (Manual) 3 (0.8-7.0) % Basophils % (Manual) 1 (0.2-1.2) Platelet Estimate Adequate Plt Morphology Comment Normal RBC Morph Comment Normal Sodium 137 (136-145) mEq/L Potassium 3.5 (3.5-5.1) mEq/L Chloride 103 (98-107) mEq/L Carbon Dioxide 22 (21-32) mEq/L Anion Gap 15.5 H (5-15) BUN 14 (7-18) mg/dL Creatinine 1.1 (0.7-1.3) mg/dL Est Cr Clr Drug Dosing 96.02 mL/min Estimated GFR (MDRD) > 60 (>60) mL/min BUN/Creatinine Ratio 12.7 L (14-18) Glucose 148 H (74-106) mg/dL Calcium 8.6 (8.5-10.1) mg/dL Total Bilirubin 0.7 (0.2-1.0) mg/dL AST 37 (15-37) U/L ALT 76 H (16-63) U/L Alkaline Phosphatase 77 (46-116) U/L Total Protein 7.2 (6.4-8.2) g/dl Albumin 3.7 (3.4-5.0) g/dl Globulin 3.5 gm/dL Albumin/Globulin Ratio 1.1 (1-2) Urine Color Light yellow (Yellow) Urine Appearance Clear (Clear) Urine pH 6.0 (5.0-8.0) Ur Specific [place] 1.015 (1.005-1.030) Urine Protein Negative (Negative) Urine Glucose (UA) Negative (Negative) Urine Ketones Negative (Negative) Urine Occult Blood 2+ H (Negative) Urine Nitrite Negative (Negative) Urine Bilirubin Negative (Negative) Urine Urobilinogen 0.2 (0.2-1.0) Ur Leukocyte Esterase Negative (Negative) Urine RBC 0-5 (0-5) /hpf Urine WBC Not seen (0-5) /hpf Ur Squamous Epith Cells 0-5 (0-5) /hpf Urine Bacteria Rare (FEW) /hpf Urine Mucus Few (FEW) /hpf Meds: Medications Discontinued Medications Generic Name Dose Route Start Last Admin Trade Name Freq PRN Reason Stop Dose Admin Hydrocodone Bitart/Acetaminophen 2 tab 11/07/18 05:34 11/07/18 05:38 Braselton 325-5 Mg PO 11/07/18 05:35 2 tab ONETIME ONE Administration Fentanyl 50 mcg 11/07/18 05:10 11/07/18 05:14 Sublimaze IVPUSH 11/07/18 05:11 50 mcg ONETIME ONE Administration Fentanyl 50 mcg 11/07/18 05:34 11/07/18 05:37 Sublimaze IVPUSH 11/07/18 05:35 50 mcg ONETIME ONE Administration Tamsulosin HCl 0.4 mg 11/07/18 05:06 11/07/18 05:14 Flomax PO 11/07/18 05:07 0.4 mg ONETIME ONE Administration - Re-Assessments/Exams Free Text/Narrative Re-Assessment/Exam: 11/07/18 05:45 Labs reviewed however UA still pending with the uncertainty of the situation when and got another CT KUB which shows a large proximal stone measuring roughly 7 mm in the proximal right ureter. Case was discussed with Dr. Meredith on-call urologist at [facility] who is willing to see the patient this next week. We are still waiting on the patient's urine before he goes home he's received fentanyl and Braselton and seems to have satisfactory pain control is also been started on Flomax Departure - Departure Time of Disposition: 05:47 Disposition: Home, Self-Care 01 Clinical Impression: Kidney stone on right side - Discharge Information Prescriptions: Acetaminophen/HYDROcodone [Braselton 325-7.5 MG] 1 - 2 tab PO Q6H PRN #30 tab PRN Reason: Pain Ondansetron [Zofran ODT] 4 mg PO Q4H PRN #12 tab.dis PRN Reason: Nausea/Vomiting Tamsulosin HCl [Flomax] 0.4 mg PO Q24H #7 capsule Instructions: Kidney Stones Referrals: Micha Meredith MD [Ordering Only Provider] - PCP,None [Primary Care Provider] - Forms: ED Department Discharge Additional Instructions: Return to the emergency room any questions problems worsening symptoms. Follow-up with Dr. Meredith early this next week call his office today to make sure they have correct contact information for you. Use the pain medication as needed be sure to allow 12 hours after taking it before driving or returning to work. Use the nausea medication as needed. Take the Flomax 1 daily. - My Orders Last 24 Hours: My Active Orders 11/07/18 04:19 Abdomen Pelvis wo Cont [CT] Stat - Assessment/Plan Last 24 Hours: My Active Orders 11/07/18 04:19 Abdomen Pelvis wo Cont [CT] Stat
[2018-11-07] MEDS ORDERED: Tamsulosin 0.4 MG Cap.ER PO ONE (05:06)
[2018-11-07] MEDS ORDERED: fentaNYL 100 MCG/2 ML SDV IVPUSH ONE ×2 (05:10→05:34)
[2018-11-07] MEDS ORDERED: Acetaminophen/HYDROcodone 325-5 MG Tab PO ONE (05:34)
--- NOTE | 2018-11-07 08:41 | CT ---
CT abdomen and pelvis Technique: Multiple axial sections were obtained from above the dome of the diaphragm inferiorly through the pubic symphysis. Intravenous and oral contrast was not utilized. Study has been performed as a ureteral stone protocol. Comparison: Prior CT study of 09/02/18. Findings: Small portion of the visualized lung bases are clear. Fatty infiltration is seen within the liver. Several slightly calcified gallstones are noted within the gallbladder. Mild fatty sparing is noted around the gallbladder. Spleen appears within normal limits. Adrenal glands show no nodule. Pancreas is within normal limits. Single small nonobstructing stone is noted within the right kidney. Left kidney shows no abnormal calcifications. 6.7 mm obstructing stone noted within the proximal right ureter near the UPJ. This causes proximal hydronephrosis. No other ureteral calculi are seen. Appendix is seen and is normal. Aorta shows no aneurysm. No retroperitoneal adenopathy or mesenteric abnormalities are seen. Diverticuli are seen within the sigmoid and descending colon without findings of diverticulitis. No free fluid or inflammatory change is seen. Bone window settings were reviewed which appears within normal limits for the patient's age. Impression: 1. 6.7 mm obstructing proximal right ureteral stone located slightly past the UPJ causing proximal hydronephrosis. Additional nonobstructing stone within the right kidney. 2. Small gallstones. 3. Fatty infiltration within the liver. 4. Other incidental findings. Diagnostic code #3 I agree with preliminary report from [facility], finalized on 11/07/18, 6:00 AM Central Time
== END 2018-11-07 06:10 | disposition home or self-care (01) ==
LOC: JD.ED 03:47
DX: N13.2 Hydronephrosis with renal and ureteral calculous obstruction (principal); F17.210 Nicotine dependence, cigarettes, uncomplicated; Z91.018 Allergy to other foods; Z88.6 Allergy status to analgesic agent
CPT/HCPCS: 36415; 74176; 80053; 81001; 85007; 85027; 96374; 99284; A9270; J3010

== ENCOUNTER 2018-11-15 16:50 | Emergency (ER) | payer OTHER ==
--- NOTE | 2018-11-15 17:23 | EDM.PDOC ---
ED HPI GENERAL MEDICAL PROBLEM - General Chief Complaint: Genitourinary Problem Stated Complaint: KIDNEY PAIN AND DIFFICULTY URINATING Time Seen by Provider: 11/15/18 16:57 Source of Information: Reports: Patient, RN Notes Reviewed History Limitations: Reports: No Limitations - History of Present Illness INITIAL COMMENTS - FREE TEXT/NARRATIVE: Medical records indicate that the patient was seen in this ED on Saturday, 2018, where he was diagnosed with a 6.7 mm ureterolith in the proximal right ureter. He was discharged home with prescriptions for Bonham 7.5/325 #30, Zofran , and tamsulosin. He was referred to a Urologist. The patient states that he followed up with the Urologist on Saturday, 2018. He states that a lithotripsy was performed, which did not adequately break up the stone, and that a right ureteral stent was placed. The patient was prescribed an additional 10 tablets of Bonham 7.5/325 plus oxybutynin. The patient is to follow-up with the Urologist on 11/28/2018, for stent removal. The patient now presents to the ED stating that ever since the stent placement, he has had urinary frequency in small quantities. He does not have dysuria, although he states that the tip of his penis esparza. He continues to have right flank pain. No recent fever. The recent nausea or vomiting, constipation, or diarrhea. The patient does not have a PCP. His Urologist is Dr. Micha Meredith. Right Abdominal Pain Score (Numeric/FACES): 8 - Related Data Allergies Allergy/AdvReac Type Severity Reaction Status Date / Time pineapple Allergy Vomiting Verified 11/07/18 03:53 tramadol Allergy Giddiness Verified 11/07/18 03:53 Home Meds: Home Meds Acetaminophen/HYDROcodone [Bonham 325-7.5 MG] 1 - 2 tab PO Q6H PRN #30 tab [Rx] Ondansetron [Zofran ODT] 4 mg PO Q4H PRN #12 tab.dis 11/07/18 [Rx] Tamsulosin HCl [Flomax] 0.4 mg PO Q24H #7 capsule 11/07/18 [Rx] Sulfamethoxazole/Trimethoprim [Bactrim Ds Tablet] 1 tab PO Q12H #10 tablet 11/15 [Rx] Past Medical History Genitourinary History: Reports: Renal Calculus Psychiatric History: Reports: ADHD (untreated) Endocrine/Metabolic History: Reports: Obesity/BMI 30+ - Infectious Disease History Infectious Disease History: Reports: Chicken Pox - Past Surgical History GI Surgical History: Reports: Hernia, Abdominal (louann-umbilical) Male Surgical History: Reports: Ureteral Stent (right, 11/12/2018) Social & Family History - Family History Family Medical History: Noncontributory HEENT: Reports: None Cardiac: Reports: CAD Respiratory: Reports: None GI: Reports: None : Reports: None OBGYN: Reports: None Musculoskeletal: Reports: None Neurological: Reports: None Psychiatric: Reports: None Endocrine/Metabolic: Reports: None Hematologic: Reports: None Immunologic: Reports: None Oncologic: Reports: None - Tobacco Use Smoking Status *Q: Current Every Day Smoker Years of Tobacco use: 26 Packs/Tins Daily: 1 Packs/Tins Daily Comment: Down from 2 ppd - Caffeine Use Caffeine Use: Reports: Tea - Alcohol Use Alcohol Use History: Yes Alcohol Use Frequency: Rarely - Recreational Drug Use Recreational Drug Use: Yes Drug Use in Last 12 Months: Yes Recreational Drug Type: Reports: Marijuana/Hashish (smokes regularly) Recreational Drug Use Frequency: Socially - Living Situation & Occupation Living situation: Reports: Single, with Significant Other (Girlfriend), with Family (2 kids) Occupation: Employed ([employer]) ED ROS GENERAL - Review of Systems Review Of Systems: ROS reveals no pertinent complaints other than HPI. ED EXAM, RENAL/ - Physical Exam Exam: See Below Exam Limited By: No Limitations General Appearance: Alert, WD/WN, No Apparent Distress Eye Exam: Bilateral Eye: EOMI, Normal Inspection Ears: Normal External Exam, Hearing Grossly Normal Nose: Normal Inspection Throat/Mouth: Normal Inspection, Normal Lips, Normal Voice, No Airway Compromise Head: Atraumatic, Normocephalic Neck: Normal Inspection, Full Range of Motion Respiratory/Chest: No Respiratory Distress, Lungs Clear, Normal Breath Sounds, No Accessory Muscle Use Cardiovascular: Normal Peripheral Pulses, Regular Rate, Rhythm, No Edema, No Gallop, No JVD, No Murmur, No Rub GI/Abdominal: Normal Bowel Sounds, Soft, Non-Tender, No Organomegaly, No Distention, No Abnormal Bruit, No Mass, Other (Obese) (Male) Exam: Deferred Rectal (Males) Exam: Deferred Back Exam: Normal Inspection, Full Range of Motion, CVA Tenderness (R). No: CVA Tenderness (L) Extremities: Normal Inspection, Normal Range of Motion, No Pedal Edema, Normal Capillary Refill Neurological: Alert, Oriented, Normal Cognition, No Motor/Sensory Deficits Psychiatric: Normal Affect Skin Exam: Warm, Dry, Intact, Normal Color, No Rash Course - Vital Signs Last Recorded V/S: Last Vital Signs Temp 36.7 C 11/15/18 16:56 Pulse 72 11/15/18 16:56 Resp 18 11/15/18 16:56 BP 148/86 H 11/15/18 16:56 Pulse Ox 97 11/15/18 16:56 - Orders/Labs/Meds Orders: Active Orders 24 hr Category Date Time Status Bladder Scan [RC] ASDIRECTED Care 11/15/18 17:06 Active KUB [Abdomen 1V Flat] [CR] Stat Exams 11/15/18 17:14 Taken CULTURE URINE [RM] Stat Lab 11/15/18 17:42 Ordered Labs: Laboratory Tests 11/15/18 Range/Units 17:20 Urine Color [place] H (Yellow) Urine Appearance Clear (Clear) Urine pH 6.0 (5.0-8.0) Ur Specific [place] > or = 1.030 (1.005-1.030) Urine Protein 2+ H (Negative) Urine Glucose (UA) Negative (Negative) Urine Ketones Negative (Negative) Urine Occult Blood 3+ H (Negative) Urine Nitrite Negative (Negative) Urine Bilirubin Negative (Negative) Urine Urobilinogen 1.0 (0.2-1.0) Ur Leukocyte Esterase 1+ H (Negative) Urine RBC Too numerous to cnt H (0-5) /hpf Urine WBC 5-10 H (0-5) /hpf Ur Epithelial Cells 0-5 (0-5) /hpf Urine Bacteria Moderate H (FEW) /hpf Urine Mucus Few (FEW) /hpf - Re-Assessments/Exams Free Text/Narrative Re-Assessment/Exam: 11/15/18 17:15 Since the patient feels like he constantly needs to urinate, I have ordered a bladder scan to make sure that he does not have any sort of obstruction causing urinary retention. I also ordered a KUB to confirm proper position of the right ureteral stent, and also to possibly to visualize the stone, and I ordered a urinalysis to make sure that the patient does not have a UTI. 11/15/18 17:37 The patient's bladder scan revealed only a trace amount of urine. KUB appears to demonstrate a double pigtail stent in the right ureter, in proper position. No ureterolith is visualized. Nonspecific bowel gas pattern. Formal read per the Radiologist pending. 11/15/18 17:43 The patient's urinalysis is remarkable for 3+ occult blood and too numerous to count RBCs, 1+ leukocyte esterase with 5-10 WBCs, nitrate negative with moderate bacteria. Given the presence of the ureteral stent, I believe that the urinalysis is consistent with a UTI, and therefore I am going to start the patient on an antibiotic, and will prescribe a 5-day course. I have ordered a urine culture. Departure - Departure Time of Disposition: 17:50 Disposition: Home, Self-Care 01 Condition: Good Clinical Impression: Pain due to ureteral stent, UTI (urinary tract infection) - Discharge Information *PRESCRIPTION DRUG MONITORING PROGRAM REVIEWED*: Not Applicable *COPY OF PRESCRIPTION DRUG MONITORING REPORT IN PATIENT VASYL: Not Applicable Referrals: Micha Meredith MD [Ordering Only Provider] - Forms: ED Department Discharge Additional Instructions: You were seen in the emergency room for continued right flank pain and the need to urinate often, in small quantities. Workup in the ER included a bladder scan, an x-ray of your abdomen, and a urinalysis. The bladder scan found virtually no urine in your bladder - you are emptying your bladder properly. The x-ray of your abdomen showed the ureteral stent to be in good position. Your urinalysis indicates that you may have a urinary tract infection. You have been started on the antibiotic Bactrim DS. A prescription for Bactrim DS has been sent to the [facility], located at [address] [place] [address]. Take one tablet of Bactrim DS every 12 hours, starting tomorrow morning, 11/16/2018, as prescribed. Finish the entire prescription unless told otherwise by a doctor. A sample of your urine has been sent for culture. We recommend that you contact the office of your Urologist, Dr. Micha Meredith, on Saturday, 11/18, to have them check on the urine culture results, to make sure that you are on the correct antibiotic. Continue to stay adequately hydrated. Follow-up with Dr. Meredith in [place] at your previously scheduled appointment on 11/28/2018, for stent removal. If any other problems, please do not hesitate to return to the ER. - My Orders Last 24 Hours: My Active Orders 11/15/18 17:06 Bladder Scan [RC] ASDIRECTED 11/15/18 17:14 KUB [Abdomen 1V Flat] [CR] Stat 11/15/18 17:42 CULTURE URINE [RM] Stat - Assessment/Plan Last 24 Hours: My Active Orders 11/15/18 17:06 Bladder Scan [RC] ASDIRECTED 11/15/18 17:14 KUB [Abdomen 1V Flat] [CR] Stat 11/15/18 17:42 CULTURE URINE [RM] Stat
[2018-11-15] MEDS ORDERED: Sulfamethoxazole/Trimethoprim 800-160 MG Tab PO ONE (17:49)
--- NOTE | 2018-11-17 06:42 | CR ---
Abdomen: Supine view of the abdomen was obtained. Comparison: Prior CT abdomen and pelvis exam of 11/07/18. Right ureteral stent has been placed in the interim from prior study. Proximal end lies within the expected renal pelvis and distal end lies within the expected bladder. Calcification is seen overlying the proximal right ureter believed to represent previous obstructing small right ureteral stone. No other abnormal calcifications are seen on this study. Bowel gas pattern is normal. Bony structures are unremarkable. Impression: 1. Right ureteral stent with stone noted overlying the proximal stent which appears to represent the obstructing stone seen on recent CT study. 2. Abdominal x-ray is otherwise unremarkable. Diagnostic code #3
== END 2018-11-15 18:12 | disposition home or self-care (01) ==
LOC: JD.ED 16:50
DX: T83.84XA Pain due to genitourinary prosthetic devices, implants and grafts, initial encounter (principal); N39.0 Urinary tract infection, site not specified; F17.210 Nicotine dependence, cigarettes, uncomplicated; Z88.5 Allergy status to narcotic agent; Z91.018 Allergy to other foods
CPT/HCPCS: 51798; 74018; 81001; 87086; 99284; A9270; 99283

== ENCOUNTER 2018-11-29 19:38 | Emergency (ER) | payer OTHER ==
[2018-11-29] MEDS ORDERED: Lidocaine 1% 50 ML MDV INJECT ONE (19:58)
--- NOTE | 2018-11-29 19:58 | EDM.PDOC ---
ED HPI GENERAL MEDICAL PROBLEM - General Chief Complaint: Upper Extremity Injury/Pain Stated Complaint: LEFT HAND FISHING HOOK STUCK Time Seen by Provider: 11/29/18 19:56 Source of Information: Reports: Patient History Limitations: Reports: No Limitations - History of Present Illness INITIAL COMMENTS - FREE TEXT/NARRATIVE: Patient is a 43-year-old male presents ED complaining of a trouble hook embedded to the webspace between his thumb and index finger. Patient was fishing and caught a [place] bike when the fish was fighting him and he accidentally got the lure hooks imbedded into his skin. The lure is embedded in a way that causes his thumb to be unable to abduct from his hand. Patient has minimal pain. Bleeding controlled. Tetanus status is up-to-date. Left Hand Pain Score (Numeric/FACES): 6 - Related Data Allergies Allergy/AdvReac Type Severity Reaction Status Date / Time pineapple Allergy Vomiting Verified 11/07/18 03:53 tramadol Allergy Giddiness Verified 11/07/18 03:53 Home Meds: Home Meds Acetaminophen/HYDROcodone [[place] 325-7.5 MG] 1 - 2 tab PO Q6H PRN #30 tab [Rx] Ondansetron [Zofran ODT] 4 mg PO Q4H PRN #12 tab.dis 11/07/18 [Rx] Tamsulosin HCl [Flomax] 0.4 mg PO Q24H #7 capsule 11/07/18 [Rx] cephALEXin [Keflex] 500 mg PO QID #28 cap 11/29/18 [Rx] Past Medical History - Past Health History Medical/Surgical History: Denies Medical/Surgical History HEENT History: Reports: None Cardiovascular History: Reports: None Respiratory History: Reports: None Gastrointestinal History: Reports: None Genitourinary History: Reports: Renal Calculus Musculoskeletal History: Reports: None Neurological History: Reports: None Psychiatric History: Reports: ADHD (untreated) Endocrine/Metabolic History: Reports: Obesity/BMI 30+ Hematologic History: Reports: None Immunologic History: Reports: None Oncologic (Cancer) History: Reports: None Dermatologic History: Reports: None - Infectious Disease History Infectious Disease History: Reports: Chicken Pox - Past Surgical History GI Surgical History: Reports: Hernia, Abdominal (louann-umbilical) Male Surgical History: Reports: Ureteral Stent (right, 11/12/2018) Social & Family History - Family History Family Medical History: Noncontributory HEENT: Reports: None Cardiac: Reports: CAD Respiratory: Reports: None GI: Reports: None : Reports: None OBGYN: Reports: None Musculoskeletal: Reports: None Neurological: Reports: None Psychiatric: Reports: None Endocrine/Metabolic: Reports: None Hematologic: Reports: None Immunologic: Reports: None Oncologic: Reports: None - Caffeine Use Caffeine Use: Reports: Tea - Living Situation & Occupation Living situation: Reports: Single, with Significant Other (Girlfriend), with Family (2 kids) Occupation: Employed ([employer]) Review of Systems - Review of Systems Review Of Systems: See Below Skin: Reports: Other (No drainage). Denies: Bruising, Erythema Neurological: Denies: Numbness, Tingling ED EXAM, GENERAL - Physical Exam Exam: See Below Exam Limited By: No Limitations General Appearance: Alert, WD/WN, No Apparent Distress Ears: Hearing Grossly Normal Nose: Normal Inspection Throat/Mouth: Normal Voice, No Airway Compromise Head: Atraumatic, Normocephalic Neck: Normal Inspection, Supple Respiratory/Chest: No Respiratory Distress, No Accessory Muscle Use Cardiovascular: Normal Peripheral Pulses, Regular Rate, Rhythm Peripheral Pulses: 2+: Radial (L) Extremities: Other (On exam patient has 2 of the 3 [place] on a trouble hook embedded into the skin between the thumb and index finger. No bleeding present. No sensory changes noted. Patient has no signs for infection.) Neurological: Alert, Oriented, CN II-XII Intact, Normal Cognition, No Motor/ Sensory Deficits ED TRAUMA EXTREMITY PROCEDURES - Foreign Body Removal Consent Obtained: Patient Performing Doctor:: Christopher Madden Foreign Body Other Location Comment:: Area was cleaned with chlorhexidine. Both embedded hooks were able to be removed by cutting the barbs and pulling it back through. No bleeding present. Also looks were completely intact prior to removing. Anesthesia Type: Local (10 mL of 1% lidocaine) Anesthesia Other:: Adequate anesthesia. Complications:: No Course - Vital Signs Last Recorded V/S: Last Vital Signs Temp 99.0 F 11/29/18 19:58 Pulse 84 11/29/18 19:58 Resp 20 11/29/18 19:58 BP 139/96 H 11/29/18 19:58 Pulse Ox 96 11/29/18 19:58 - Orders/Labs/Meds Meds: Medications Discontinued Medications Generic Name Dose Route Start Last Admin Trade Name Maribel PRN Reason Stop Dose Admin Cephalexin 500 mg 11/29/18 20:24 11/29/18 20:28 Keflex PO 11/29/18 20:25 500 mg ONETIME ONE Administration Lidocaine HCl 50 ml 11/29/18 19:58 11/29/18 20:28 Xylocaine 1% INJECT 11/29/18 19:59 Not Given ONETIME ONE Lidocaine HCl Confirm 11/29/18 19:59 11/29/18 20:28 Xylocaine 1% Administered 11/29/18 20:00 10 ml Dose Administration 10 ml .ROUTE .STK-MED ONE - Re-Assessments/Exams Free Text/Narrative Re-Assessment/Exam: Triple hook removed with no complications. Patient will be placed on Keflex. Return precautions were discussed with the patient. Patient voiced his understanding and no further questions or concerns. Discharge instructions as documented. Departure - Departure Time of Disposition: 20:19 Disposition: Home, Self-Care 01 Condition: Good Clinical Impression: Puncture wound Fish hook injury of hand Qualifiers: Encounter type: initial encounter Laterality: left Qualified Code(s): S69.92XA - Unspecified injury of left wrist, hand and finger(s), initial encounter - Discharge Information Prescriptions: cephALEXin [Keflex] 500 mg PO QID #28 cap Instructions: Hand or Foot Foreign Body, Adult Referrals: Felipe Alfonso MD [Primary Care Provider] - Forms: ED Department Discharge Additional Instructions: Cleanse site twice daily with soap and water, pat dry, reapply triple antibiotic ointment to the affected areas. Take the full course of Keflex as prescribed. Utilize Tylenol and ibuprofen for pain. Please return back to ED if he develops any concerns for infection including: Increased swelling, drainage, redness, and pain.
[2018-11-29] MEDS ORDERED: Lidocaine 1% 10 ML MDV ONE (19:59)
[2018-11-29] MEDS ORDERED: Cephalexin 500 MG Cap PO ONE (20:24)
== END 2018-11-29 20:30 | disposition home or self-care (01) ==
LOC: JD.ED 19:38
DX: S60.552A Superficial foreign body of left hand, initial encounter (principal); E66.9 Obesity, unspecified; Z68.37 Body mass index [BMI] 37.0-37.9, adult; W45.8XXA Other foreign body or object entering through skin, initial encounter; Z79.899 Other long term (current) drug therapy
CPT/HCPCS: 99283; A9270; J2001; 20520

== ENCOUNTER 2019-12-16 02:01 | Emergency (ER) | payer SELFPAY ==
[2019-12-16] MEDS ORDERED: LORazepam 2 MG/ML SDV ONE (02:59)
[2019-12-16] MEDS ORDERED: Aluminum Hydroxide/Magnesium Hydroxide/Simethicone Susp 30 ML Cup ONE (02:59)
[2019-12-16] MEDS ORDERED: Lidocaine 2% Viscous Solution 15 ML Cup ONE (03:52)
[2019-12-16] MEDS ORDERED: Sucralfate Suspension 1 GM/10 ML Cup ONE (05:07)
[2019-12-16] MEDS ORDERED: Pantoprazole 40 MG Tab.CR ONE (05:07)
--- NOTE | 2019-12-16 09:24 | ER ---
CHIEF COMPLAINT: Upper abdominal discomfort. HISTORY OF PRESENT ILLNESS: The patient awoke around 1 o'clock this morning with significant discomfort and a gaseous sensation. He had discomfort radiating up behind his breast bone. He does not describe a burning, but more of a pressure sensation. The patient gets anxious with this. The patient has not had prior problems with anxiety. The patient does smoke, but he is working on quitting. The patient has a strong family history of coronary artery disease. The patient is quite anxious upon arrival to the emergency room. The patient denies illicit drugs. REVIEW OF SYSTEMS: GENERAL: Negative for fevers or chills. HEENT: The patient denies any problems with hearing, swallowing, or breathing through his nose. CARDIOVASCULAR: The patient denies any chest pressure or pain with exertion. See history of present illness. PULMONARY: The patient denies any breathing difficulties or shortness breath. GASTROINTESTINAL: Significant for gaseous sensation. GENITOURINARY: The patient denies any burning or frequency with urination. MUSCULOSKELETAL: The patient does not have any aches and pains that are out of the ordinary for him. PHYSICAL EXAMINATION: VITAL SIGNS: Stable. Afebrile. GENERAL: He is alert and oriented, cooperative with the exam. HEAD: Normocephalic. NECK: Supple. No palpable neck masses. Thyroid is not palpable. No lymphadenopathy. HEART: Regular rate and rhythm. No murmur, gallop, or rub. LUNGS: Respirations nonlabored. No wheezes, crackles, or rhonchi noted. No wheezes noted with first expiration. GASTROINTESTINAL: Active bowel sounds. Soft. He has some epigastric discomfort with palpation. No rigidity, rebound, or guarding noted. BACK: No spinous process discomfort. No muscle spasm appreciated. EXTREMITIES: Negative for edema. COURSE IN THE EMERGENCY ROOM: EKG shows a normal sinus rhythm, borderline left axis, no acute ST or T-wave changes. No evidence of ischemia. With the patient's anxiety, he was tried on some ativan, this did not help much. He was then given a GI cocktail, and this helped quite a bit. This was followed up with Carafate, which further helped, and he was given Protonix. Laboratory evaluation shows a troponin that is less than 0.017. BUN 16, creatinine 1.37, calcium 8.4, sodium 140, potassium 3.7, chloride 103, CO2 of 27.2, glucose 117, total bilirubin 0.4, total protein 6.5. CBC shows a white count of 6560, hemoglobin and hematocrit of 13.8 and 41.6% respectively. RBC indices are suggestive of a macrocytic process developing. Automated differential shows 57.5% segs, 24.2% lumps, 13.1% monocytes, 1.2% eosinophils, 1.2% basophils. FINAL DIAGNOSIS: Suspicious for gastroesophageal reflux disease, gastroesophageal reflux disease. DISPOSITION: The patient is discharged on Carafate. Six-day supply, to be taken a.c. and bedtime. He will be started on Protonix, taken 60 minutes before his morning meal, #30. He is instructed to follow up with his regular provider in 1 week, return to the emergency room with any questions, problems, or worsening symptoms. MMODAL /[id number]
== END 2019-12-16 06:00 | disposition home or self-care (01) ==
LOC: JD.ED 02:01
DX: R10.13 Epigastric pain (principal)
CPT/HCPCS: 36415; 80053; 84484; 85025; 99284; A9270; J2060

== ENCOUNTER 2020-01-07 09:46 | Emergency (ER) | payer SELFPAY ==
--- NOTE | 2020-01-07 10:34 | EDM.PDOC ---
ED HPI GENERAL MEDICAL PROBLEM - General Chief Complaint: Back Pain or Injury Stated Complaint: BACK/LEG PAIN Time Seen by Provider: 01/07/20 10:04 Source of Information: Reports: Patient, RN Notes Reviewed - History of Present Illness INITIAL COMMENTS - FREE TEXT/NARRATIVE: 44 year old male comes in with mid and low back pain that he has had off and on in the past, more bothersome over the past month. No acute fall or specific known injury. 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 Pain is worse with motion. Taking occasional motrin and tylenol but only once or twice per day. No voiding sx. No fever or chills. Treatments TRANSITIONAL CARE LIAISON: Reports: Acetaminophen Lower Back Pain Score (Numeric/FACES): 8 - Related Data Allergies Allergy/AdvReac Type Severity Reaction Status Date / Time pineapple AdvReac Severe Vomiting Verified 01/07/20 10:00 tramadol AdvReac Severe Giddiness Verified 01/07/20 10:00 Home Meds: Home Meds Naproxen [Naprosyn] 500 mg PO Q12HR #14 tab 01/07/20 [Rx] Past Medical History - Past Health History Medical/Surgical History: Denies Medical/Surgical History HEENT History: Reports: None Cardiovascular History: Reports: None Respiratory History: Reports: None Gastrointestinal History: Reports: GERD Genitourinary History: Reports: Renal Calculus Musculoskeletal History: Reports: None Neurological History: Reports: None Psychiatric History: Reports: ADHD Endocrine/Metabolic History: Reports: Obesity/BMI 30+ Hematologic History: Reports: None Immunologic History: Reports: None Oncologic (Cancer) History: Reports: None Dermatologic History: Reports: None - Infectious Disease History Infectious Disease History: Reports: Chicken Pox - Past Surgical History Head Surgeries/Procedures: Reports: None GI Surgical History: Reports: Cholecystectomy, Hernia, Abdominal Male Surgical History: Reports: Ureteral Stent Social & Family History - Family History Family Medical History: Noncontributory HEENT: Reports: None Cardiac: Reports: CAD Respiratory: Reports: None GI: Reports: None : Reports: None OBGYN: Reports: None Musculoskeletal: Reports: None Neurological: Reports: None Psychiatric: Reports: None Endocrine/Metabolic: Reports: None Hematologic: Reports: None Immunologic: Reports: None Oncologic: Reports: None - Tobacco Use Smoking Status *Q: Current Every Day Smoker Years of Tobacco use: 20 Packs/Tins Daily: 1 - Caffeine Use Caffeine Use: Reports: Soda - Recreational Drug Use Recreational Drug Use: Yes Drug Use in Last 12 Months: Yes Recreational Drug Type: Reports: Marijuana/Hashish Recreational Drug Use Frequency: Weekly - Living Situation & Occupation Living situation: Reports: Single, with Significant Other (Girlfriend), with Family (2 kids) Occupation: Employed ([employer]) ED ROS GENERAL - Review of Systems Review Of Systems: See Below Constitutional: Denies: Fever, Chills, Diaphoresis HEENT: Reports: No Symptoms Respiratory: Denies: Shortness of Breath Cardiovascular: Denies: Chest Pain GI/Abdominal: Denies: Abdominal Pain, Nausea, Vomiting : Reports: No Symptoms Musculoskeletal: Reports: Back Pain. Denies: Leg Pain Skin: Reports: No Symptoms Neurological: Denies: Numbness, Tingling, Weakness ED EXAM,LOWER BACK PAIN/INJURY - Physical Exam Exam: See Below General Appearance: Alert, No Apparent Distress Throat/Mouth: Normal Inspection Head: Atraumatic Neck: Supple Respiratory/Chest: No Respiratory Distress GI/Abdominal: Soft, Non-Tender Back Exam: Paraspinal Tenderness (mild mid and upper lower back, no visible swelling, now warmth or erythema). No: Vertebral Tenderness Extremities: Normal Inspection, Normal Range of Motion Neurological: Alert, No Motor/Sensory Deficits Course - Vital Signs Last Recorded V/S: Last Vital Signs Temp 98.1 F 01/07/20 09:56 Pulse 78 01/07/20 09:56 Resp 20 01/07/20 09:56 BP 167/99 H 01/07/20 09:56 Pulse Ox 98 01/07/20 09:56 Departure - Departure Time of Disposition: 10:31 Disposition: Home, Self-Care 01 Condition: Fair Clinical Impression: Back pain of thoracolumbar region - Discharge Information Prescriptions: Naproxen [Naprosyn] 500 mg PO Q12HR #14 tab Instructions: Acute Back Pain, Adult Referrals: PCP,None [Primary Care Provider] - Forms: ED Department Discharge Additional Instructions: Try avoid heavy lifting as best you can. Naprosyn 500 mg twice daily, alternate with tylenol 1000 mg 3 times daily. Prescription has been sent electronically to [facility], [facility]. Alternate ice and heat as needed. Physical therapy for further eval and treatment. See one of our medical providers at [facility] in about 2 weeks if not much better, call [phone] for appointment. Sepsis Event Note (ED) - Evaluation Sepsis Screening Result: No Definite Risk - Focused Exam Vital Signs: Vital Signs Temp Pulse Resp BP Pulse Ox 01/07/20 09:56 98.1 F 78 20 167/99 H 98
== END 2020-01-07 10:52 | disposition home or self-care (01) ==
LOC: JD.ED 09:46
DX: M54.6 Pain in thoracic spine (principal); M54.5 Low back pain; E66.9 Obesity, unspecified; Z68.34 Body mass index [BMI] 34.0-34.9, adult; F17.210 Nicotine dependence, cigarettes, uncomplicated; Z88.5 Allergy status to narcotic agent; Z91.013 Allergy to seafood
CPT/HCPCS: 99283

== ENCOUNTER 2020-01-10 15:44 | Emergency (ER) | payer SELFPAY ==
--- NOTE | 2020-01-10 17:39 | EDM.PDOC ---
ED HPI GENERAL MEDICAL PROBLEM - General Chief Complaint: ENT Problem Stated Complaint: DENTAL COMPLAINT Time Seen by Provider: 01/10/20 17:37 Source of Information: Reports: Patient History Limitations: Reports: No Limitations - History of Present Illness INITIAL COMMENTS - FREE TEXT/NARRATIVE: 44-year-old male presents to the ED with severe pain coming from the left lower lateral incisor tooth. He states he woke up this morning and the tooth was fractured. He has teeth that are in very bad condition both upper and lowers with associated pyorrhea in his gingiva. Took oxycodone that he had leftover at home from his back pain with some relief of the pain. Pain is described as constant throbbing and pulsating. 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) (Took Percocet tablets 5 325 mg at home.) Tooth/Teeth Pain Score (Numeric/FACES): 8 - Related Data Allergies Allergy/AdvReac Type Severity Reaction Status Date / Time pineapple AdvReac Severe Vomiting Verified 01/10/20 17:14 tramadol AdvReac Severe Giddiness Verified 01/10/20 17:14 Home Meds: Home Meds Naproxen [Naprosyn] 500 mg PO Q12HR #14 tab 01/07/20 [Rx] Past Medical History - Past Health History Medical/Surgical History: Denies Medical/Surgical History HEENT History: Reports: None Cardiovascular History: Reports: None Respiratory History: Reports: None Gastrointestinal History: Reports: GERD Genitourinary History: Reports: Renal Calculus Musculoskeletal History: Reports: None Neurological History: Reports: None Psychiatric History: Reports: ADHD Endocrine/Metabolic History: Reports: Obesity/BMI 30+ Hematologic History: Reports: None Immunologic History: Reports: None Oncologic (Cancer) History: Reports: None Dermatologic History: Reports: None - Infectious Disease History Infectious Disease History: Reports: Chicken Pox - Past Surgical History Head Surgeries/Procedures: Reports: None GI Surgical History: Reports: Cholecystectomy, Hernia, Abdominal Male Surgical History: Reports: Ureteral Stent Social & Family History - Family History Family Medical History: Noncontributory HEENT: Reports: None Cardiac: Reports: CAD Respiratory: Reports: None GI: Reports: None : Reports: None OBGYN: Reports: None Musculoskeletal: Reports: None Neurological: Reports: None Psychiatric: Reports: None Endocrine/Metabolic: Reports: None Hematologic: Reports: None Immunologic: Reports: None Oncologic: Reports: None - Tobacco Use Smoking Status *Q: Current Every Day Smoker Years of Tobacco use: 22 Packs/Tins Daily: 1 - Caffeine Use Caffeine Use: Reports: None - Recreational Drug Use Recreational Drug Use: Yes Drug Use in Last 12 Months: Yes Recreational Drug Type: Reports: Marijuana/Hashish Recreational Drug Use Frequency: Weekly - Living Situation & Occupation Living situation: Reports: Single, with Significant Other (Girlfriend), with Family (2 kids) Occupation: Employed ([employer]) ED ROS ENT - Review of Systems Review Of Systems: See Below Constitutional: Reports: Fatigue, Decreased Appetite. Denies: Fever, Chills, Malaise, Weakness, Weight Loss HEENT: Reports: Dental Pain (Dental pain coming from the left lower lateral incisor tooth which is fractured. He has evidence of pyorrhea of all of his teeth both upper and lower anteriorly.) Respiratory: Reports: No Symptoms Cardiovascular: Reports: No Symptoms Endocrine: Reports: No Symptoms GI/Abdominal: Reports: No Symptoms : Reports: No Symptoms Musculoskeletal: Reports: Back Pain Skin: Reports: No Symptoms (Just seen last week with severe low back pain. Is getting into physical therapy program.) Neurological: Reports: No Symptoms Psychiatric: Reports: No Symptoms ED EXAM, ENT - Physical Exam Exam: See Below Exam Limited By: No Limitations General Appearance: Alert, WD/WN, Mild Distress, Other (Temperature is 36.4 with heart rate of 72 and respiratory of 16. BP not registered. Pulse ox 100% on room air.) Mouth/Throat: Dental Tenderness (Dental tenderness) Course - Vital Signs Last Recorded V/S: Last Vital Signs Temp 36.4 C 01/10/20 17:12 Pulse 72 01/10/20 17:12 Resp 16 01/10/20 17:12 BP Pulse Ox 100 07/12/20 17:12 - Orders/Labs/Meds Meds: Medications Discontinued Medications Generic Name Dose Route Start Last Admin Trade Name Maribel PRN Reason Stop Dose Admin Diphtheria/Tetanus/Acell Pertussis 0.5 ml 01/10/20 17:51 Adacel IM 01/10/20 17:52 .ONCE ONE Lidocaine HCl 10 ml 01/10/20 17:53 Xylocaine 1% INJECT 01/10/20 17:54 ONETIME ONE - Radiology Interpretation Free Text/Narrative:: 44-year-old male presents to the ED with severe dental pain coming from the left lower lateral incisor tooth. He states he awoke this morning and the tooth was fractured and he believes it occurred sometime during the night. On inspection however he has pain [place] involving all of the lower teeth and partial of the upper teeth and the gums are severely diseased. The tooth is indeed fractured however. He will need to be have it removed. It is slightly loose but not loose enough to require extraction at this time. Plan placed on amoxicillin 500 mg 3 times daily for the next 10 days. Percocet tabs 5/325 mg 1 or 2 every 4-6 hours needed for pain relief x16. He will use Motrin 600 mg every 6 hours or Aleve 2 tablets every 8 hours for pain relief. He will follow-up with dentist as soon as able. Departure - Departure Time of Disposition: 17:37 Disposition: Home, Self-Care 01 Condition: Fair Clinical Impression: Chronic dental infection - Discharge Information *PRESCRIPTION DRUG MONITORING PROGRAM REVIEWED*: Not Applicable *COPY OF PRESCRIPTION DRUG MONITORING REPORT IN PATIENT VASYL: Not Applicable Instructions: Dental Abscess Referrals: PCP,None [Primary Care Provider] - Forms: ED Department Discharge Additional Instructions: Evaluation in the emergency room today in regards to fracture of the left lower lateral incisor tooth. There is evidence of pyorrhea with infection of all of the teeth along the lower gingiva margin. Treatment is to be antibiotic amoxicillin 500 mg 3 times daily for the next 10 days to clear up infection. Need to follow-up with dentist to have this tooth extracted it is is broken or fractured. Oxycodone tablets 5/325 mg 1 or 2 every 4-6 hours necessary for pain relief. Continue use of Motrin 600 mg every 6 hours or Aleve 2 tablets every 8 hours for reduction of pain and inflammation. Sepsis Event Note (ED) - Evaluation Sepsis Screening Result: No Definite Risk - Focused Exam Vital Signs: Vital Signs Temp Pulse Resp Pulse Ox 01/10/20 17:12 36.4 C 72 16 100
[2020-01-10] MEDS ORDERED: Diphtheria,Pertussis(Acell),Tetanus Vaccine 0.5 ML Syringe IM ONE (17:51)
[2020-01-10] MEDS ORDERED: Lidocaine 1% 10 ML MDV INJECT ONE (17:53)
== END 2020-01-10 17:48 | disposition home or self-care (01) ==
LOC: JD.ED 15:44
DX: K04.7 Periapical abscess without sinus (principal); K03.81 Cracked tooth; E66.9 Obesity, unspecified; F17.210 Nicotine dependence, cigarettes, uncomplicated; Z91.018 Allergy to other foods; Z88.5 Allergy status to narcotic agent; Z68.35 Body mass index [BMI] 35.0-35.9, adult
CPT/HCPCS: 99282; 99283

== ENCOUNTER 2020-01-17 19:40 | Emergency (ER) | payer SELFPAY ==
[2020-01-17] MEDS ORDERED: Ketorolac 30 MG/ML SDV IM ONE (19:59)
[2020-01-17] MEDS ORDERED: Orphenadrine 100 MG Tab.ER PO ONE (19:59)
[2020-01-17] MEDS ORDERED: Acetaminophen/oxyCODONE 325-5 MG Tab PO ONE (20:07)
[2020-01-17] MEDS ORDERED: Dexamethasone 10 MG/ML SDV IM ONE (20:07)
--- NOTE | 2020-01-17 20:14 | EDM.PDOC ---
ED HPI GENERAL MEDICAL PROBLEM - General Chief Complaint: Back Pain or Injury Stated Complaint: LOWER BACK PAIN Time Seen by Provider: 01/17/20 19:50 Source of Information: Reports: Patient, RN Notes Reviewed History Limitations: Reports: No Limitations - History of Present Illness INITIAL COMMENTS - FREE TEXT/NARRATIVE: Patient is a 44-year-old male who presents to the ED for evaluation of his lower back pain. Patient notes he has been having issues with this for some time, was seen in the ER about a week ago, was given some Naprosyn, he states everything was going okay, but yesterday he washed his dogs, and thinks maybe the stooping over the tub prime aggravated the pain again. Patient complains of some mid to lower back pain, that got worse this morning at around 6 AM. He has been using the Naprosyn, and also Tylenol ibuprofen with little effect. States the Tylenol ibuprofen was last taken 1 hour prior to coming to the ER. Patient notes that the pain does not radiate into his hips or down the legs, any further denies any numbness or tingling, urinary or bowel incontinence, or any saddle anesthesia. Patient states that the pain is quite intense that he felt somewhat nauseated but did not vomit. Patient further denies any sort of fever/chills, cough/shortness of breath, chest pain/abdomen pain. 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 Lower Back Pain Score (Numeric/FACES): 9 - Related Data Allergies Allergy/AdvReac Type Severity Reaction Status Date / Time pineapple AdvReac Severe Vomiting Verified 01/17/20 19:53 tramadol AdvReac Severe Giddiness Verified 01/17/20 19:53 Home Meds: Home Meds Naproxen [Naprosyn] 500 mg PO Q12HR PRN 01/17/20 [History] Orphenadrine [Norflex] 100 mg PO BID PRN #20 tab 01/17/20 [Rx] Penicillin V Potassium 500 mg PO TID 01/17/20 [History] predniSONE 20 mg PO ASDIRECTED #15 tab 01/17/20 [Rx] Past Medical History Gastrointestinal History: Reports: GERD Genitourinary History: Reports: Renal Calculus Musculoskeletal History: Reports: Back Pain, Chronic Psychiatric History: Reports: ADHD Endocrine/Metabolic History: Reports: Obesity/BMI 30+ - Infectious Disease History Infectious Disease History: Reports: Chicken Pox - Past Surgical History GI Surgical History: Reports: Hernia, Inguinal Male Surgical History: Reports: Ureteral Stent Social & Family History - Family History Family Medical History: Noncontributory HEENT: Reports: None Cardiac: Reports: CAD Respiratory: Reports: None GI: Reports: None : Reports: None OBGYN: Reports: None Musculoskeletal: Reports: None Neurological: Reports: None Psychiatric: Reports: None Endocrine/Metabolic: Reports: None Hematologic: Reports: None Immunologic: Reports: None Oncologic: Reports: None - Tobacco Use Smoking Status *Q: Current Every Day Smoker Years of Tobacco use: 20 Packs/Tins Daily: 1 - Caffeine Use Caffeine Use: Reports: Tea - Recreational Drug Use Recreational Drug Use: Yes Drug Use in Last 12 Months: Yes Recreational Drug Type: Reports: Marijuana/Hashish Recreational Drug Use Frequency: Weekly - Living Situation & Occupation Living situation: Reports: Single, with Significant Other (Girlfriend), with Family (2 kids) Occupation: Employed ([employer]) ED ROS GENERAL - Review of Systems Review Of Systems: Comprehensive ROS is negative, except as noted in HPI. ED EXAM,LOWER BACK PAIN/INJURY - Physical Exam Exam: See Below Exam Limited By: No Limitations General Appearance: Alert, WD/WN, No Apparent Distress Respiratory/Chest: No Respiratory Distress, Lungs Clear, Normal Breath Sounds, No Accessory Muscle Use, Chest Non-Tender Cardiovascular: Normal Peripheral Pulses, Regular Rate, Rhythm, No Murmur GI/Abdominal: Normal Bowel Sounds, Soft, Non-Tender, No Distention, No Mass Back Exam: Normal Inspection, Decreased Range of Motion (d/t pain, states that twisting or stooping motions seems to worsen the pain.), Muscle Spasm (along the lower bilateral spine.) Extremities: Normal Inspection, Normal Capillary Refill Neurological: Alert, Normal Mood/Affect, Normal Dorsiflexion, CN II-XII Intact, Normal Plantar Flexion, Normal Gait (pt has stiff gait), Normal Reflexes, No Motor/Sensory Deficits, Oriented x 3, Straight Leg Raise (L) (slightly positive), Straight Leg Raise (R) (slightly positive). No: Saddle Anesthesia Psychiatric: Normal Affect, Normal Mood Skin Exam: Warm, Dry, Intact, Normal Color, No Rash Course - Vital Signs Last Recorded V/S: Last Vital Signs Temp 97.4 F 07/19/20 19:49 Pulse 69 01/17/20 19:49 Resp 18 01/17/20 19:49 BP 139/79 01/17/20 19:49 Pulse Ox 99 01/17/20 19:49 - Orders/Labs/Meds Meds: Medications Discontinued Medications Generic Name Dose Route Start Last Admin Trade Name Luis Fq PRN Reason Stop Dose Admin Dexamethasone 10 mg 01/17/20 20:07 Dexamethasone IM 01/17/20 20:08 ONETIME ONE Ketorolac Tromethamine 60 mg 01/17/20 19:59 01/17/20 20:07 Toradol IM 01/17/20 20:00 Not Given ONETIME ONE Orphenadrine Citrate 100 mg 01/17/20 19:59 01/17/20 20:07 Norflex PO 01/17/20 20:00 100 mg ONETIME ONE Administration Oxycodone/Acetaminophen 1 tab 01/17/20 20:07 Percocet 325-5 Mg PO 01/17/20 20:08 ONETIME ONE - Re-Assessments/Exams Free Text/Narrative Re-Assessment/Exam: 01/17/20 20:14 Patient presents to the ED for evaluation of his lower back pain. Have ordered 10 mg IM dexamethasone, and 100 mg p.o. Norflex for initial management. Patient will be discharged home with a course of prednisone and Norflex for management with other general recommendations. Departure - Departure Time of Disposition: 20:14 Disposition: Home, Self-Care 01 Condition: Good Clinical Impression: Lower back pain Qualifiers: Chronicity: acute Back pain laterality: bilateral Sciatica presence: with sciatica Sciatica laterality: bilateral sciatica Qualified Code(s): M54.42 - L umbago with sciatica, left side; M54.41 - Lumbago with sciatica, right side - Discharge Information *PRESCRIPTION DRUG MONITORING PROGRAM REVIEWED*: No *COPY OF PRESCRIPTION DRUG MONITORING REPORT IN PATIENT VASYL: No Prescriptions: Orphenadrine [Norflex] 100 mg PO BID PRN #20 tab PRN Reason: Spasms predniSONE 20 mg PO ASDIRECTED #15 tab Instructions: Chronic Back Pain, [id number] Referrals: PCP,None [Primary Care Provider] - Forms: ED Department Discharge, ED Return to Work/School Form Additional Instructions: You were evaluated in the ER today for your lower back pain. This does seem to stem from the muscles in her back, which do have some spasm and a component of sciatica. You will be started on a course of prednisone, and a muscle relaxer called Norflex, please take as directed. 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 You may also try ice/heat to the area, to provide further pain relief. Please try to limit bending/stooping/twisting activities as this seems to aggravate your pain. Please return to the ER at any time if your symptoms seem to change or worsen. Sepsis Event Note (ED) - Evaluation Sepsis Screening Result: No Definite Risk - Focused Exam Vital Signs: Vital Signs Temp Pulse Resp BP Pulse Ox 01/17/20 19:49 97.4 F 69 18 139/79 99
== END 2020-01-17 20:32 | disposition home or self-care (01) ==
LOC: JD.ED 19:40
DX: M54.42 Lumbago with sciatica, left side (principal); M54.41 Lumbago with sciatica, right side; E66.9 Obesity, unspecified; Z68.35 Body mass index [BMI] 35.0-35.9, adult; F17.210 Nicotine dependence, cigarettes, uncomplicated; Z79.899 Other long term (current) drug therapy; Z88.5 Allergy status to narcotic agent; Z91.018 Allergy to other foods
CPT/HCPCS: 96372; 99283; A9270; J1100

== ENCOUNTER 2021-02-16 16:36 | Emergency (ER) | payer SELFPAY ==
[2021-02-16] MEDS ORDERED: Ketorolac 60 MG/2 ML SDV IM ONE (17:10)
--- NOTE | 2021-02-16 17:22 | EDM.PDOC ---
ED HPI GENERAL MEDICAL PROBLEM - General Chief Complaint: ENT Problem Stated Complaint: DENTAL COMPLAINT Time Seen by Provider: 02/16/21 16:49 Source of Information: Reports: Patient History Limitations: Reports: No Limitations, Other (ED vital signs reveal a temp of 98.5, pulse of 92, respiratory rate of 16, blood pressure 141/85, pulse ox 95% on room air) - History of Present Illness INITIAL COMMENTS - FREE TEXT/NARRATIVE: 45-year-old male presents the emergency department with complaints of dental pain. For the patient did report he has a history of dental caries with i nfection. He states that about 4 days ago he developed dental pain to tooth #28. He has attempted to take ibuprofen for the pain and inflammation however he states that today it has become unbearable. Patient does have dental caries to almost all of his teeth with numerous broken teeth. 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 [No Known Home Meds] 02/16/21 [History] Past Medical History - Past Health History Medical/Surgical History: Denies Medical/Surgical History HEENT History: Reports: None Gastrointestinal History: Reports: GERD Genitourinary History: Reports: Renal Calculus Musculoskeletal History: Reports: Back Pain, Chronic Neurological History: Reports: None Psychiatric History: Reports: ADHD Endocrine/Metabolic History: Reports: Obesity/BMI 30+ Hematologic History: Reports: None Immunologic History: Reports: None Oncologic (Cancer) History: Reports: None Dermatologic History: Reports: None - Infectious Disease History Infectious Disease History: Reports: Chicken Pox - Past Surgical History GI Surgical History: Reports: Hernia, Inguinal Other GI Surgeries/Procedures: umbilical hernia Male Surgical History: Reports: Ureteral Stent Social & Family History - Family History Family Medical History: No Pertinent Family History HEENT: Reports: None Cardiac: Reports: CAD Respiratory: Reports: None GI: Reports: None : Reports: None OBGYN: Reports: None Musculoskeletal: Reports: None Neurological: Reports: None Psychiatric: Reports: None Endocrine/Metabolic: Reports: None Hematologic: Reports: None Immunologic: Reports: None Oncologic: Reports: None - Tobacco Use Tobacco Use Status *Q: Current Every Day Tobacco User Years of Tobacco use: 25 Packs/Tins Daily: 1 - Caffeine Use Caffeine Use: Reports: Tea - Recreational Drug Use Recreational Drug Use: No - Living Situation & Occupation Living situation: Reports: Single, with Significant Other (Girlfriend), with Family (2 kids) Occupation: Employed ([employer]) ED ROS ENT - Review of Systems Review Of Systems: Comprehensive ROS is negative, except as noted in HPI. ED EXAM, ENT - Physical Exam Exam: See Below Exam Limited By: No Limitations General Appearance: Alert, WD/WN, Mild Distress Ears: Normal External Exam, Hearing Grossly Normal Nose: Normal Inspection Mouth/Throat: Normal Lips, Dental Pain (Around tooth #28), Dental Tenderness, Gum Swelling, Other (Tooth #28 is broken off and dental caries is noted). No: Normal Teeth, Dental Abcess Head: Atraumatic Neck: Normal Inspection, Supple. No: Lymphadenopathy (L), Lymphadenopathy (R) Respiratory/Chest: No Respiratory Distress, No Accessory Muscle Use Cardiovascular: Normal Peripheral Pulses, Regular Rate, Rhythm GI/Abdominal: No Distention (Male) Exam: Deferred Rectal (Males) Exam: Deferred Back: Normal Inspection Extremities: Normal Inspection Neurological: Alert, Oriented, Normal Cognition Psychiatric: Normal Affect, Normal Mood Skin: Warm, Dry, Intact, Normal Color, No Rash Lymphatic: No Adenopathy Course - Vital Signs Text/Narrative:: As stated above patient presents with complaints of dental pain to tooth #28. Tooth is completely broken off. Gums are erythematous and edematous around this tooth. Patient will be given a shot of Toradol while in the emergency department. He will be then discharged home with prescription for clindamycin 300 mg 4 times daily for 7 days. I will send him home with a few hydrocodone as it will likely be 48 hours before the antibiotic start to take effect. Last Recorded V/S: Last Vital Signs Temp 98.5 F 02/16/21 16:44 Pulse 92 02/16/21 16:44 Resp 16 02/16/21 16:44 BP 141/85 H 02/16/21 16:44 Pulse Ox 95 02/16/21 16:44 - Orders/Labs/Meds Meds: Medications Discontinued Medications Generic Name Dose Route Start Last Admin Trade Name Freq PRN Reason Stop Dose Admin Ketorolac Tromethamine 60 mg 02/16/21 17:10 Ketorolac 60 Mg/2 Ml Sdv IM 02/16/21 17:11 ONETIME ONE Departure - Departure Time of Disposition: 17:25 Disposition: Home, Self-Care 01 Condition: Good Clinical Impression: Dental caries extending into dentin - Discharge Information Instructions: Dental Caries, Adult, [id number] Referrals: PCP,None [Primary Care Provider] - Forms: ED Department Discharge Additional Instructions: You were seen in the emergency department today with dental pain to your right fourth tooth on the bottom. You were given Toradol, strong anti-inflammatory while in the emergency department. I have given you a prescription for an antibiotic called clindamycin. You need to take this antibiotic 4 times daily for the next 7 days. I have also sent prescription for some hydrocodone. You may take 1 tablet as needed for pain every 6 hours. It will likely take 48 to 72 hours for the antibiotics to take effect. May take Tylenol 650 mg every 4 hours as needed for lesser pain. May also take ibuprofen 600 mg every 8 hours as needed for lesser pain. Sepsis Event Note (ED) - Evaluation Sepsis Screening Result: No Definite Risk - Focused Exam Vital Signs: Vital Signs Temp Pulse Resp BP Pulse Ox 02/16/21 16:44 98.5 F 92 16 141/85 H 95
== END 2021-02-16 17:40 | disposition home or self-care (01) ==
LOC: JD.ED 16:36
DX: K02.9 Dental caries, unspecified (principal); K00.7 Teething syndrome; E66.9 Obesity, unspecified; Z68.32 Body mass index [BMI] 32.0-32.9, adult; Z72.0 Tobacco use; Z88.5 Allergy status to narcotic agent; Z91.018 Allergy to other foods
CPT/HCPCS: 96372; 99282; J1885; 99283

== ENCOUNTER 2021-04-14 11:52 | Emergency (ER) | payer SELFPAY ==
[2021-04-14 14:02] LABS: ACETAMINOPHEN 0 ug/mL (10-30)
--- NOTE | 2021-04-14 14:04 | EDM.PDOC ---
ED HPI GENERAL MEDICAL PROBLEM - General Chief Complaint: General Stated Complaint: MEDICAL CLEARANCE Time Seen by Provider: 04/14/21 12:56 Source of Information: Reports: Patient History Limitations: Reports: No Limitations - History of Present Illness INITIAL COMMENTS - FREE TEXT/NARRATIVE: The patient presents for medical clearance for [facility] to detox from opiates. He said he last used last night. He has no symptoms now such as anxiety, nausea, vomiting or abdominal pain. He has no other health problems. He has been using for awhile. Onset: Gradual Duration: Day(s): Improves with: Reports: None Worsens with: Reports: None Associated Symptoms: Reports: No Other Symptoms - Related Data Allergies Allergy/AdvReac Type Severity Reaction Status Date / Time pineapple AdvReac Severe Vomiting Verified 04/14/21 12:47 tramadol AdvReac Severe Giddiness Verified 04/14/21 12:47 Home Meds: Home Meds Ondansetron [Zofran ODT] 4 mg PO Q6H #20 tab.dis 04/14/21 [Rx] cloNIDine [Catapres] 0.1 mg PO Q8H #30 tab 04/14/21 [Rx] Past Medical History - Past Health History Medical/Surgical History: Denies Medical/Surgical History HEENT History: Reports: None Gastrointestinal History: Reports: GERD Genitourinary History: Reports: Renal Calculus Musculoskeletal History: Reports: Back Pain, Chronic Neurological History: Reports: None Psychiatric History: Reports: ADHD Endocrine/Metabolic History: Reports: Obesity/BMI 30+ Hematologic History: Reports: None Immunologic History: Reports: None Oncologic (Cancer) History: Reports: None Dermatologic History: Reports: None - Infectious Disease History Infectious Disease History: Reports: Chicken Pox - Past Surgical History Head Surgeries/Procedures: Reports: None GI Surgical History: Reports: Hernia, Inguinal Other GI Surgeries/Procedures: umbilical hernia Male Surgical History: Reports: Ureteral Stent Social & Family History - Family History Family Medical History: No Pertinent Family History HEENT: Reports: None Cardiac: Reports: CAD Respiratory: Reports: None GI: Reports: None : Reports: None OBGYN: Reports: None Musculoskeletal: Reports: None Neurological: Reports: None Psychiatric: Reports: None Endocrine/Metabolic: Reports: None Hematologic: Reports: None Immunologic: Reports: None Oncologic: Reports: None - Tobacco Use Tobacco Use Status *Q: Current Every Day Tobacco User Years of Tobacco use: 20 Packs/Tins Daily: 1 - Caffeine Use Caffeine Use: Reports: Soda - Recreational Drug Use Recreational Drug Use: Yes Recreational Drug Type: Reports: Fentanyl, Marijuana/Hashish, Methamphetamine Recreational Drug Use Frequency: Monthly - Living Situation & Occupation Living situation: Reports: Single, with Significant Other (Girlfriend), with Family (2 kids) Occupation: Employed ([employer]) ED ROS GENERAL - Review of Systems Review Of Systems: See Below Constitutional: Reports: No Symptoms HEENT: Reports: No Symptoms Respiratory: Reports: No Symptoms Cardiovascular: Reports: No Symptoms Endocrine: Reports: No Symptoms GI/Abdominal: Reports: No Symptoms : Reports: No Symptoms Musculoskeletal: Reports: No Symptoms ED EXAM, GENERAL - Physical Exam Exam: See Below Exam Limited By: No Limitations General Appearance: Alert, No Apparent Distress Ears: Normal External Exam Nose: Normal Inspection Head: Atraumatic, Normocephalic Neck: Normal Inspection Respiratory/Chest: No Respiratory Distress, Lungs Clear, Normal Breath Sounds Cardiovascular: Regular Rate, Rhythm, No Edema, No Murmur Course - Vital Signs Last Recorded V/S: Last Vital Signs Temp 96.9 F 04/14/21 12:45 Pulse 83 04/14/21 12:45 Resp 20 04/14/21 12:45 BP 161/91 H 04/14/21 12:45 Pulse Ox 98 04/14/21 12:45 - Orders/Labs/Meds Orders: Active Orders 24 hr Category Date Time Status T4 FREE [CHEM] Stat Lab 04/14/21 13:21 Received Labs: Laboratory Tests 04/14/21 04/14/21 04/14/21 Range/Units 12:53 13:21 13:21 WBC 7.85 (4.23-9.07) K/mm3 RBC 4.69 (4.63-6.08) M/mm3 Hgb 15.2 (13.7-17.5) gm/dl Hct 46.6 (40.1-51.0) % MCV 99.4 H (79.0-92.2) fl MCH 32.4 H (25.7-32.2) pg MCHC 32.6 (32.2-35.5) g/dl RDW Std Deviation 44.0 H (35.1-43.9) fL Plt Count 243 (163-337) K/mm3 MPV 9.9 (9.4-12.3) fl Neut % (Auto) 54.8 (34.0-67.9) % Lymph % (Auto) 29.7 (21.8-53.1) % [place] % (Auto) 9.4 (5.3-12.2) % Eos % (Auto) 4.7 (0.8-7.0) Baso % (Auto) 1.1 (0.1-1.2) % Neut # (Auto) 4.30 (1.78-5.38) K/mm3 Lymph # (Auto) 2.33 (1.32-3.57) K/mm3 [place] # (Auto) 0.74 (0.30-0.82) K/mm3 Eos # (Auto) 0.37 (0.04-0.54) K/mm3 Baso # (Auto) 0.09 H (0.01-0.08) K/mm3 Sodium 140 (136-145) mEq/L Potassium 4.5 (3.5-5.1) mEq/L Chloride 104 (98-107) mEq/L Carbon Dioxide 26 (21-32) mEq/L Anion Gap 14.5 (5-15) BUN 13 (7-18) mg/dL Creatinine 0.9 (0.7-1.3) mg/dL Est Cr Clr Drug Dosing 114.96 mL/min Estimated GFR (MDRD) > 60 (>60) mL/min BUN/Creatinine Ratio 14.4 (14-18) Glucose 109 H (70-99) mg/dL Calcium 8.6 (8.5-10.1) mg/dL Total Bilirubin 0.3 (0.2-1.0) mg/dL AST 8 L (15-37) U/L ALT 18 (16-63) U/L Alkaline Phosphatase 93 (46-116) U/L Total Protein 7.7 (6.4-8.2) g/dl Albumin 3.8 (3.4-5.0) g/dl Globulin 3.9 gm/dL Albumin/Globulin Ratio 1.0 (1-2) TSH 3rd Generation 10.287 H (0.358-3.74) uIU/mL Urine Opiates Screen Negative (IVWBBU=024) Ur Buprenorphine Scrn Negative (CUTOFF=10) Ur Oxycodone Screen Negative (ITP0IK=693) Urine Methadone Screen Negative (HQM7GA=364) Ur Propoxyphene Screen Negative (UNCZLM=715) Acetaminophen 0 L (10-30) ug/mL Ur Barbiturates Screen Negative (PDTJQL=792) Ur Tricyclics Screen Negative (EJJKWU=078) Ur Phencyclidine Scrn Negative (CUTOFF=25) Ur Amphetamine Screen Presumptive positive H (CGRJNJ=605) U Methamphetamines Scrn Presumptive positive H (DFNLRE=245) U Benzodiazepines Scrn Negative (SAUBWJ=802) U Cocaine Metab Screen Negative (AQFBPD=569) U Marijuana (THC) Screen Presumptive positive H (CUTOFF=50) Ethyl Alcohol 0.00 (0.00) gm% SARS-CoV-2 RNA (OSWALDO) (NEGATIVE) 04/14/21 Range/Units 13:56 WBC (4.23-9.07) K/mm3 RBC (4.63-6.08) M/mm3 Hgb (13.7-17.5) gm/dl Hct (40.1-51.0) % MCV (79.0-92.2) fl MCH (25.7-32.2) pg MCHC (32.2-35.5) g/dl RDW Std Deviation (35.1-43.9) fL Plt Count (163-337) K/mm3 MPV (9.4-12.3) fl Neut % (Auto) (34.0-67.9) % Lymph % (Auto) (21.8-53.1) % [place] % (Auto) (5.3-12.2) % Eos % (Auto) (0.8-7.0) Baso % (Auto) (0.1-1.2) % Neut # (Auto) (1.78-5.38) K/mm3 Lymph # (Auto) (1.32-3.57) K/mm3 [place] # (Auto) (0.30-0.82) K/mm3 Eos # (Auto) (0.04-0.54) K/mm3 Baso # (Auto) (0.01-0.08) K/mm3 Sodium (136-145) mEq/L Potassium (3.5-5.1) mEq/L Chloride (98-107) mEq/L Carbon Dioxide (21-32) mEq/L Anion Gap (5-15) BUN (7-18) mg/dL Creatinine (0.7-1.3) mg/dL Est Cr Clr Drug Dosing mL/min Estimated GFR (MDRD) (>60) mL/min BUN/Creatinine Ratio (14-18) Glucose (70-99) mg/dL Calcium (8.5-10.1) mg/dL Total Bilirubin (0.2-1.0) mg/dL AST (15-37) U/L ALT (16-63) U/L Alkaline Phosphatase (46-116) U/L Total Protein (6.4-8.2) g/dl Albumin (3.4-5.0) g/dl Globulin gm/dL Albumin/Globulin Ratio (1-2) TSH 3rd Generation (0.358-3.74) uIU/mL Urine Opiates Screen (KRISAJ=786) Ur Buprenorphine Scrn (CUTOFF=10) Ur Oxycodone Screen (ZNQ6ZV=091) Urine Methadone Screen (ZNR7LB=279) Ur Propoxyphene Screen (ZLKZJO=467) Acetaminophen (10-30) ug/mL Ur Barbiturates Screen (FZTESN=195) Ur Tricyclics Screen (RWMQPT=039) Ur Phencyclidine Scrn (CUTOFF=25) Ur Amphetamine Screen (BYKSXX=379) U Methamphetamines Scrn (UACWFC=537) U Benzodiazepines Scrn (KPUSBZ=703) U Cocaine Metab Screen (HQEFUH=577) U Marijuana (THC) Screen (CUTOFF=50) Ethyl Alcohol (0.00) gm% SARS-CoV-2 RNA (OSWALDO) Negative (NEGATIVE) Meds: Medications Discontinued Medications Generic Name Dose Route Start Last Admin Trade Name Freq PRN Reason Stop Dose Admin Clonidine HCl 0.1 mg 04/14/21 14:13 Clonidine 0.1 Mg Tab PO 04/14/21 14:14 ONETIME ONE - Re-Assessments/Exams Free Text/Narrative Re-Assessment/Exam: 04/14/21 14:08 I ordered labs and COVID 19. 04/14/21 14:10 His CBC and CMP look good. His TSH was elevated at 10.87. I will check a T4 and have him follow up with his provider within a week to have it rechecked. His acetaminophen and salicylates were negative. His ETOH is 0. His drug screen was presumptive positive for amphetamines, methamphetamines, and marijuana. 04/14/21 14:31 He is COVID negative. Departure - Departure Time of Disposition: 14:35 Disposition: Home, Self-Care 01 Condition: Good Clinical Impression: Opioid abuse - Discharge Information *PRESCRIPTION DRUG MONITORING PROGRAM REVIEWED*: Not Applicable *COPY OF PRESCRIPTION DRUG MONITORING REPORT IN PATIENT VASYL: Not Applicable Prescriptions: cloNIDine [Catapres] 0.1 mg PO Q8H #30 tab Ondansetron [Zofran ODT] 4 mg PO Q6H #20 tab.dis Referrals: PCP,None [Primary Care Provider] - Phillip Duran MD [Physician] - 1 Week Forms: ED Department Discharge Additional Instructions: Drink plenty of fluids. Take the clonidine 3 times per day until gone. Take the zofran every 6 hours hours. Follow up with your provider or Dr Duran in 1 to 2 weeks to have your thyroid level. Please return if you are worse. Sepsis Event Note (ED) - Focused Exam Vital Signs: Vital Signs Temp Pulse Resp BP Pulse Ox 04/14/21 12:45 96.9 F 83 20 161/91 H 98 - My Orders Last 24 Hours: My Active Orders 04/14/21 13:21 T4 FREE [CHEM] Stat - Assessment/Plan Last 24 Hours: My Active Orders 04/14/21 13:21 T4 FREE [CHEM] Stat
[2021-04-14] MEDS ORDERED: cloNIDine 0.1 MG Tab PO ONE (14:13)
== END 2021-04-14 15:00 | disposition home or self-care (01) ==
LOC: JD.ED 11:52
DX: F12.10 Cannabis abuse, uncomplicated (principal); E66.9 Obesity, unspecified; Z88.5 Allergy status to narcotic agent; Z91.018 Allergy to other foods; Z72.0 Tobacco use; Z20.822 Contact with and (suspected) exposure to COVID-19; Z68.31 Body mass index [BMI] 31.0-31.9, adult
CPT/HCPCS: 36415; 80053; 80143; 80306; 80307; 84439; 84443; 85025; 87635; 87804; 99283; A9270; U0002

== ENCOUNTER 2021-04-16 13:59 | Emergency (ER) | payer SELFPAY ==
--- NOTE | 2021-04-16 15:03 | EDM.PDOC ---
ED HPI GENERAL MEDICAL PROBLEM - General Chief Complaint: Chest Pain Stated Complaint: HIGH BP\ CHEST PAIN Time Seen by Provider: 04/16/21 15:01 - History of Present Illness INITIAL COMMENTS - FREE TEXT/NARRATIVE: 45-year-old male presents the emergency room with chest pain and elevated blood pressure. Patient is currently staying at the [facility] for opioid withdrawals. He was seen here couple days ago started on Zofran as needed and clonidine 0.1 mg 3 times daily unfortunately has not been able to get the clonidine filled because of financial restraints. The patient thinks he is quite anxious and when his anxiety calms down his chest pain goes away. But over the RCC his blood pressure was noted to be a little elevated systolic in the 150s over about 100 Middle Chest Pain Score (Numeric/FACES): 4 - Related Data Allergies Allergy/AdvReac Type Severity Reaction Status Date / Time pineapple AdvReac Severe Vomiting Verified 04/16/21 14:07 tramadol AdvReac Severe Giddiness Verified 04/16/21 14:07 Home Meds: Home Meds . [No Known Home Meds] 04/16/21 [History] Past Medical History - Past Health History Medical/Surgical History: Denies Medical/Surgical History HEENT History: Reports: None Gastrointestinal History: Reports: GERD Genitourinary History: Reports: Renal Calculus Musculoskeletal History: Reports: Back Pain, Chronic Neurological History: Reports: None Psychiatric History: Reports: ADHD, Addiction, Anxiety Endocrine/Metabolic History: Reports: Obesity/BMI 30+ Hematologic History: Reports: None Immunologic History: Reports: None Oncologic (Cancer) History: Reports: None Dermatologic History: Reports: None - Infectious Disease History Infectious Disease History: Reports: Chicken Pox - Past Surgical History GI Surgical History: Reports: Hernia, Inguinal Other GI Surgeries/Procedures: umbilical hernia Male Surgical History: Reports: Ureteral Stent Social & Family History - Family History Family Medical History: No Pertinent Family History HEENT: Reports: None Cardiac: Reports: CAD Respiratory: Reports: None GI: Reports: None : Reports: None OBGYN: Reports: None Musculoskeletal: Reports: None Neurological: Reports: None Psychiatric: Reports: None Endocrine/Metabolic: Reports: None Hematologic: Reports: None Immunologic: Reports: None Oncologic: Reports: None - Tobacco Use Tobacco Use Status *Q: Current Every Day Tobacco User Years of Tobacco use: 30 Packs/Tins Daily: 1 - Caffeine Use Caffeine Use: Reports: Tea - Recreational Drug Use Recreational Drug Type: Reports: Marijuana/Hashish, Methamphetamine, Other (see below) Other Recreational Drug Type: Opiates - Living Situation & Occupation Living situation: Reports: Single, with Significant Other (Girlfriend), with Family (2 kids) Occupation: Employed ([employer] ED ROS GENERAL - Review of Systems Review Of Systems: See Below Constitutional: Reports: No Symptoms HEENT: Reports: No Symptoms Respiratory: Reports: No Symptoms Cardiovascular: Reports: No Symptoms GI/Abdominal: Reports: No Symptoms : Reports: No Symptoms Musculoskeletal: Reports: No Symptoms Neurological: Reports: No Symptoms Psychiatric: Reports: Anxiety ED EXAM, GENERAL - Physical Exam Exam: See Below Exam Limited By: No Limitations General Appearance: Alert, No Apparent Distress, Other (Patient states his anxiety is doing better) Eye Exam: Bilateral Eye: Normal Inspection, PERRL Ears: Normal External Exam, Normal Canal, Hearing Grossly Normal, Normal TMs Nose: Normal Inspection, Normal Mucosa, No Blood Throat/Mouth: Normal Inspection, Normal Lips, Normal Gums, Normal Oropharynx, Normal Voice, No Airway Compromise. No: Normal Teeth (Very poor dentition) Head: Atraumatic, Normocephalic Neck: Normal Inspection, Supple, Non-Tender, Full Range of Motion Respiratory/Chest: No Respiratory Distress, Lungs Clear, Normal Breath Sounds Cardiovascular: Regular Rate, Rhythm, No Edema, No Murmur GI/Abdominal: Normal Bowel Sounds, Soft, Non-Tender #1 Interpretation EKG Date: 04/16/21 Rhythm: NSR Rate (Beats/Min): 87 [place]: Normal P-Wave: Present QRS: Other (Normal morphology with early transition) ST-T: Normal QT: Normal OK/PQ Interval: OK interval is borderline short Comparison: Change From Previous EKG (OK interval is slightly shorter) EKG Interpretation Comments: Abnormal EKG Course - Vital Signs Last Recorded V/S: Last Vital Signs Temp 36.7 C 04/16/21 16:37 Pulse 98 04/16/21 16:37 Resp 15 04/16/21 16:37 BP 128/68 04/16/21 16:37 Pulse Ox 98 04/16/21 16:37 - Orders/Labs/Meds Orders: Active Orders 24 hr Category Date Time Status Chest 1V Frontal [CR] Stat Exams 04/16/21 15:08 Taken Labs: Laboratory Tests 04/16/21 04/16/21 Range/Units 15:25 15:25 WBC 7.83 (4.23-9.07) K/mm3 RBC 4.80 (4.63-6.08) M/mm3 Hgb 15.7 (13.7-17.5) gm/dl Hct 46.4 (40.1-51.0) % MCV 96.7 H (79.0-92.2) fl MCH 32.7 H (25.7-32.2) pg MCHC 33.8 (32.2-35.5) g/dl RDW Std Deviation 42.9 (35.1-43.9) fL Plt Count 233 (163-337) K/mm3 MPV 10.1 (9.4-12.3) fl Neut % (Auto) 66.5 (34.0-67.9) % Lymph % (Auto) 22.7 (21.8-53.1) % [place] % (Auto) 8.0 (5.3-12.2) % Eos % (Auto) 1.8 (0.8-7.0) Baso % (Auto) 0.6 (0.1-1.2) % Neut # (Auto) 5.20 (1.78-5.38) K/mm3 Lymph # (Auto) 1.78 (1.32-3.57) K/mm3 [place] # (Auto) 0.63 (0.30-0.82) K/mm3 Eos # (Auto) 0.14 (0.04-0.54) K/mm3 Baso # (Auto) 0.05 (0.01-0.08) K/mm3 Sodium 138 (136-145) mEq/L Potassium 4.0 (3.5-5.1) mEq/L Chloride 104 (98-107) mEq/L Carbon Dioxide 25 (21-32) mEq/L Anion Gap 13.0 (5-15) BUN 8 (7-18) mg/dL Creatinine 0.9 (0.7-1.3) mg/dL Est Cr Clr Drug Dosing 114.96 mL/min Estimated GFR (MDRD) > 60 (>60) mL/min BUN/Creatinine Ratio 8.9 L (14-18) Glucose 113 H (70-99) mg/dL Calcium 9.0 (8.5-10.1) mg/dL Total Bilirubin 0.4 (0.2-1.0) mg/dL AST 13 L (15-37) U/L ALT 26 (16-63) U/L Alkaline Phosphatase 84 (46-116) U/L Troponin I < 0.017 (0.00-0.056) ng/mL Total Protein 7.6 (6.4-8.2) g/dl Albumin 3.9 (3.4-5.0) g/dl Globulin 3.7 gm/dL Albumin/Globulin Ratio 1.1 (1-2) Meds: Medications Discontinued Medications Generic Name Dose Route Start Last Admin Trade Name Maribel PRN Reason Stop Dose Admin Clonidine HCl 0.1 mg 04/16/21 15:14 04/16/21 15:30 Clonidine 0.1 Mg Tab PO 04/16/21 15:15 0.1 mg ONETIME ONE Administration - Re-Assessments/Exams Free Text/Narrative Re-Assessment/Exam: 04/16/21 16:30 X-ray shows no acute changes labs assuring. Patient is feeling better after half of a 0.1 clonidine we will give him the other half of 0.1 now and have him return to the [facility]. Departure - Departure Time of Disposition: 16:31 Disposition: Home, Self-Care 01 Clinical Impression: Anxiety, Medication withdrawal - Discharge Information Instructions: Managing Anxiety, Adult Referrals: PCP,None [Primary Care Provider] - Forms: ED Department Discharge Additional Instructions: Return to the emergency room with any questions problems or worsening symptoms. Try to get your clonidine prescription filled since it has been several days since this was given to you take 1 twice daily for several days and then a half a tablet twice daily for several days and then stop. Follow-up with your regular healthcare provider as soon as you can. Sepsis Event Note (ED) - Evaluation Sepsis Screening Result: No Definite Risk - Focused Exam Vital Signs: Vital Signs Temp Pulse Resp BP BP Pulse Ox 04/16/21 16:37 36.7 C 98 15 128/68 98 04/16/21 15:30 121/90 04/16/21 14:05 36.4 C 83 16 155/104 H 96 - My Orders Last 24 Hours: My Active Orders 04/16/21 15:08 Chest 1V Frontal [CR] Stat - Assessment/Plan Last 24 Hours: My Active Orders 04/16/21 15:08 Chest 1V Frontal [CR] Stat
[2021-04-16] MEDS ORDERED: cloNIDine 0.1 MG Tab PO ONE (15:14)
--- NOTE | 2021-04-16 20:40 | CR ---
Chest: Portable view of the chest was obtained. Comparison: No prior chest imaging is available. Heart size and mediastinum are within normal limits. Lungs are clear with no acute parenchymal change. Bony structures show nothing acute. Impression: 1. Nothing acute is seen on portable chest x-ray. Diagnostic code #1
== END 2021-04-16 16:37 | disposition home or self-care (01) ==
LOC: JD.ED 13:59
DX: F41.9 Anxiety disorder, unspecified (principal); F11.23 Opioid dependence with withdrawal; E66.9 Obesity, unspecified; Z88.5 Allergy status to narcotic agent; Z91.018 Allergy to other foods; Z72.0 Tobacco use; Z68.31 Body mass index [BMI] 31.0-31.9, adult
CPT/HCPCS: 36415; 71045; 80053; 84484; 85025; 93005; 99285; A9270